=== PATIENT | male | born 1980 | race Caucasian/White ===

== ENCOUNTER → 2017-12-18 08:58 | Outpatient (CLI) | payer OTHER, SELFPAY | PROVIDERS: Family Provider Family Medicine; PCP Family Medicine; Visit Provider Family Medicine | DX: R13.10 Dysphagia, unspecified (principal) | CPT/HCPCS: 74220 ==

== ENCOUNTER 2024-12-21 06:52 | Day surgery (SDC) | payer OTHER, SELFPAY ==
[2024-12-21] VITALS (7 sets, daily range): BP systolic 123–134; BP diastolic 88–97; PULSE 68–78; RESP 16; TEMP 36.4–36.6; O2SAT 95–99; BMI 28.8
--- OUTSIDE RECORDS SUMMARY | 2024-12-21 06:56 | XMS RPT_ITS | CCD ---
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 Mendoza Primary Care Provider Dr. Reji Galaviz MD Referring Provider Friend Dr. Marshall CASTORENA Attending Provider Reji Galaviz Primary Care Unavailable FriendMarshall Attending Unavailable Reji Galaviz Referring Unavailable Nate Lux Referring Unavailable Nate Lux Primary Care Unavailable FriendMarshall Attending Unavailable Problems Problem Classification Problem Date Documented Da te Episodic/Chronic Other gastrointestinal disorders (1 source) Dysphagia, unspecified; Translations: [Dysphagia, unspecified] Onset: 12-11-2024 Episodic Results Test Name Value Interpretation Reference Range Facility Gastroenterology Visit Repor ton 12-10-2024 Gastroenterology Visit Report [facility] [address] [place] [address] OFFICE VISIT Date of Service: 12/10/24 MR#: [id number] Acct: [id number] Name: EDEN SHARP Rep #: [id number] : 1980 Provider: Marshall Krause DO Age/Sex: 44/M Location[place] [facility] Status: Signed Intake Intake Visit Reasons: Dysphagia Allergies No Known Allergies Allergy (Verified 12/10/24 15:53) Medications ???Medication ???Instructions ???Recorded ???Confirmed ???Type NK 12/10/24 12/10/24 History Nurse's Note: Pt was scheduled for EGD on 12.21.24 at the end of their appt today. Reviewed prep instructions and which medications to hold prior to procedure with pt in office. A paper copy of EGD prep instructions were given to pt. Pt denies any questions or concerns at this time. PFSH Surgical History (Updated 12/10/24 @ 15:52 by Tesha García) History of hernia repair History of tonsillectomy Family History (Updated 12/10/24 @ 15:52 by Tesha García) Father Alcoholism Grandfather Alcoholism Social History (Updated 12/10/24 @ 15:34 by Tesha García) Smoking Status: Never smoker alcohol intake: current alcohol intake frequency: holidays/special occasions only substance use type: does not use HPI HPI Details: EDEN SHARP, is a 44 M who presents to the office today for initial consult. *[facility] established 8 pt reprots that for the past several years he has had trouble with meat and dry food; states he can feel it get stuck at the top of his stomach. States he is sometimes able to get it to go down with a drink, other times states he has to vomit in order to dislodge it. Pt reports he has never had an EGD before. ROS Const Constitutional: No fatigue, fever(s) or weight change ENT ENT: Positive for difficulty swallowing Gastro GI: Positive for difficulty swallowing; No abdominal pain, belching, bloating, change in bowel habits, change in stool character, coffee ground emesis, constipation, cramping, diarrhea, heartburn, feeling full early, excessive flatus, incontinent of stools, Vomiting blood/hematemesis, Blood in stool, loose stools, Black,tarry stools, nausea/dyspepsia, pain with swallowing, vomiting or other Musc Musculoskeletal: No joint pain Skin Skin: No yellowing of the eye or itchy eyes Psych Psychiatric: No anxiety and No depression Endo Endocrine: No fatigue or weight change Aller/Imm Allergy/Immunologic: No itchy eyes Rafal/Lymp Hematologic/Lymphatic: No easy bleeding or easy bruising Exam Const General: cooperative, healthy appearing and comfortable Nutritional Appearance: well nourished Orientation: oriented x3 Eyes Sclera: sclerae normal Resp Effort Inspection: normal respiratory effort Auscultation: Bilateral: Clear to Auscultation Cardio Rate: regular rate Rhythm: regular rhythm GI Inspection: normal to inspection Auscultation: normal bowel sounds Percussion: normal to percussion Palpation: no hepatosplenomegaly Assessment and Plan Assessment and Plan (1) Dysphagia: Plan: The patient reports experiencing a sensation of food sticking or getting caught in the chest when swallowing solid foods.???This has been present for months to years.???The patient may report feeling the need to repeatedly swallow, or take multiple sips of liquids to help the food pass, or that the food seems to get stuck and then resolve spontaneously.???It has been occurring for several years. He cannot associate it with any particular type of food except for meats. His lipids been stable. He does not have a history of esophageal reflux disease. On occasion he may get heartburn with red wine .Differential Diagnosis:???A broad differential diagnosis should be considered, including: * Mechanical Obstruction:???Esophage al strictures (e.g., peptic stricture, eosinophilic esophagitis), webs, rings, or tumors.??? * Motility Disorders:???Achalasia, esophageal spasm, or other motility disorders.??? * Extrinsic Compression:???Mediasti nal masses, enlarged lymph nodes, or vascular abnormalities.??? * Other:???GERD, medications, or neurological conditions affecting swallowing.??? * Further Evaluation: * Endoscopy (EGD):???To visualize the esophagus, assess for strictures, tumors, or other abnormalities. * Barium Swallow:???He had a barium swallow back in 2018 which did show the narrowing at the distal esophagus. * Esophageal Manometry:???To assess esophageal muscle contractions and pressures, useful for diagnosing motility disorders. * Other Imaging:???CT scan or MRI may be needed to evaluate for extrinsic compression or other mediastinal abnormalities.??? Coding Level of Care Code Off vis,new,level 4 Diagnoses Dysphagia R13.10 12/10/24 1642 Date Marshall F (more content not included)... Normal [facility] Other 01-21-2006 CONVERTED ELECTRONIC SIGNATURE PEGGY KANG M.D., PATHOLOGIST (Electronic signature on file) Final Signed Out: 01/21/2006 16:07 [facility] CONVERTED FINAL DIAGNOSIS LEFT INGUINAL REGION, EXCISION - BENIGN FIBROADIPOSE TISSUE CONSISTENT WITH HERNIA SAC. [facility] CONVERTED ORDERING PROVIDER Ordering Provider: LINUS MONTILLA [facility] Encounters Encounter Date Encounter Type Care Provider Facility Start: 12-21-2024 ambulatory Nate Lux Facility:[facility] Start: 12-10-2024 End: 12-10-2024 Patient encounter procedure Marshall Krause DO -[facility] Work Phone: Start: 12-10-2024 End: 12-10-[address] Reji Galaviz MD Work Phone: -[facility] Start: 01-18-2006 End: 01-18-2006 Patient encounter procedure Linus Montilla Work Phone: [facility] Start: 01-18-2006 Results Only Linus Montilla Work Phone: [facility] Procedures Date Procedure Procedure Detail Performing Clinician Start: 01-18-2006 CONVERTED SURGICAL PATHOLOGY Linus Montilla Work Phone: Payers Date Payer Category Payer Self-pay 2012 Unknown [id number] Unknown [id number] Unknown [id number] Social History Date Type Detail Facility Tobacco smoking stat [facility] Unknown if ever smoked [facility] Sex Assigned At Not on file [facility] Start: 12-10-2024 [facility] Start: 1980 Sex Assigned At Male [facility] Progress note 12-10-2024 Note Date & Type Note Facility 12-10-2024 Progress note Note Date/Time December 10, 2024 4:42pm [facility] [address] [place] [address] OFFICE VISIT Date of Service: 12/10/24 MR#: [id number] Acct: [id number] Name: EDEN SHARP Rep #: [id number] : 1980 Provider: Marshall Krause DO Age/Sex: 44/M Location: [facility] Status: Signed Intake Intake Visit Reasons: Dysphagia Allergies No Known Allergies Allergy (Verified 12/10/24 15:53) Medications ?Medication ?Instructions ?Recorded ?Confirmed ?Type NK 12/10/24 12/10/24 History Nurse's Note: Pt was scheduled for EGD on 12.21.24 at the end of their appt today. Reviewed prep instructions and which medications to hold prior to procedure with pt in office. A paper copy of EGD prep instructions were given to pt. Pt denies any questions or concerns at this time. [facility] Surgical History (Updated 12/10/24 @ 15:52 by Tesha García) History of hernia repair History of tonsillectomy Family History (Updated 12/10/24 @ 15:52 by Tesha García) Father Alcoholism Grandfather Alcoholism Social History (Updated 12/10/24 @ 15:34 by Tesha García) Smoking Status: Never smoker alcohol intake: current alcohol intake frequency: holidays/special occasions only substance use type: does not use HPI HPI Details: EDEN SHARP, is a 44 M who presents to the office today for initial consult. *[facility] established 12.10.24 pt reprots that for the past several years he has had trouble with meat and dry food; states he can feel it get stuck at the top of his stomach. States he is sometimes able to get it to go down with a drink, other times states he has to vomit in order to dislodge it. Pt reports he has never had an EGD before. ROS Const Constitutional: No fatigue, fever(s) or weight change ENT ENT: Positive for difficulty swallowing Gastro GI: Positive for difficulty swallowing; No abdominal pain, belching, bloating, change in bowel habits, change in stool character, coffee ground emesis, constipation, cramping, diarrhea, heartburn, feeling full early, excessive flatus, incontinent of stools, Vomiting blood/hematemesis, Blood in stool, loose stools, Black,tarry stools, nausea/dyspepsia, pain with swallowing, vomiting or other Musc Musculoskeletal: No joint pain Skin Skin: No yellowing of the eye or itchy eyes Psych Psychiatric: No anxiety and No depression Endo Endocrine: No fatigue or weight change Aller/Imm Allergy/Immunologic: No itchy eyes Rafal/Lymp Hematologic/Lymphatic: No easy bleeding or easy bruising Exam Const General: cooperative, healthy appearing and comfortable Nutritional Appearance: well nourished Orientation: oriented x3 Eyes Sclera: sclerae normal Resp Effort & Inspection: normal respiratory effort Auscultation: Bilateral: Clear to Auscultation Cardio Rate: regular rate Rhythm: regular rhythm GI Inspection: normal to inspection Auscultation: normal bowel sounds Percussion: normal to percussion Palpation: no hepatosplenomegaly Assessment and Plan Assessment and Plan (1) Dysphagia: Plan: The patient reports experiencing a sensation of food sticking or getting caught in the chest when swallowing solid foods.?This has been present for months to years.?The patient may report feeling the need to repeatedly swallow, or take multiple sips of liquids to help the food pass, or that the food seems to get stuck and then resolve spontaneously.?It has been occurring for several years. He cannot associate it with any particular type of food except for meats. His lipids been stable. He does not have a history of esophageal reflux disease. On occasion he may get heartburn with red wine .Differential Diagnosis:?A broad differential diagnosis should be considered, including: * Mechanical Obstruction:?Esophageal strictures (e.g., peptic stricture, eosinophilic esophagitis), webs, rings, or tumors.? * Motility Disorders:?Achalasia, esophageal spasm, or other motility disorders.? * Extrinsic Compression:?Mediastinal masses, enlarged lymph nodes, or vascular abnormalities.? * Other:?GERD, medications, or neurological conditions affecting swallowing.? * Further Evaluation: * Endoscopy (EGD):?To visualize the esophagus, assess for strictures, tumors, or other abnormalities. * Barium Swallow:?He had a barium swallow back in 2018 which did show the narrowing at the distal esophagus. * Esophageal Manometry:?To assess esophageal muscle contractions and pressures, useful for diagnosing motility disorders. * Other Imaging:?CT scan or MRI may be needed to evaluate for extrinsic compression or other mediastinal abnormalities.? Coding Level of Care Code Off vis,new,level 4 Diagnoses Dysphagia R13.10 12/10/24 2922 <Electronically signed by Marshall adame DO> Date _ Marshall Friend DO Adele Signature: Date (if applicable) CC: ~ [facility] Work Phone: Progress note 12-10-2024 Note Date & Type Note Facility 12-10-2024 Progress note [facility] Evaluation note Note Date & Type Note Facility Evaluation note No assessment information availa ble [facility] Work Phone: Reason for referral (narrative) Note Date & Type Note Facility Reason for referral (narrative) No reason for referral information available [facility] Work Phone: Chief Complaint and Reason for Visit Chief Complaint Admit Date Dysphagia December 10, 2024 3: 30pm Summary Purpose Family History No Family History Records Found Advance Directives No Advanced Directives Records Found Additional Source Comments Source Comments (unrecognize d section and content) In the event this informatio n is protected by the Federal Confidentiality of Alcohol and Drug Abuse Patient Records regulations: The Federal rules restrict any use of the information to criminally investigate or prosecute any alcohol or drug abuse patient.[facility] Care Teams (unrecognized sec tion and content) Team Status: Active Member Role/Relationship Status Dates Dr. Reji Galaviz MD Family Provider Active Dr. Reji Galaviz MD Primary Care Provider Acti ve Team Status: Inactive Member Role/Relationship Status Dates Dr. Reji Galaviz MD Primary Care Provider Acti ve Start: December 10, 2024 End: December 10, 2024 Dr. Reji Galaviz MD Referring Provider Active Start: December 10, 2024 End: December 10, 2024 Dr. Marshall Krause , DO Attending Provider Active Start: December 10, 2024 End: December 10, 2024 Goals (unrecognized section and content) Goals may be documented in a n alternate section (unrecognized sect ion and content) No Status Records Found INFORMATION SOURCE (unrecogn ized section and content) DATE CREATED AUTHOR 12/19/2024 [facility] FOR RECORDS PERTAINING TO PATIENTS WHO ARE OR HAVE BEEN ENROLLED IN A CHEMICAL DEPENDENCY/SUBSTANCEABUSE PROGRAM, SOME INFORMATION MAY BE OMITTED. This clinical summary was aggregated from multiple sources. Caution should be exercised in using it in the provision of clinical care. This summary normalizes information from multiple sources, and as a consequence, information in this document may materially change the coding, format and clinical context of patient data. In addition, data may be omitted in some cases. CLINICAL DECISIONS SHOULD BE BASED ON THE PRIMARY CLINICAL RECORDS. [employer] [facility]. provides no warranty or guarantee of the accuracy or completeness of information in this document.
--- NOTE | 2024-12-21 07:22 | HP.PCM_ITS ---
HPI - General General Date of Admission: 12/21/24 Date of Service: 12/21/24 Chief Complaint: dysphagia HPI Narrative *[facility] established 12.10.24 pt reports that for the past several years he has had trouble with meat and dry food; states he can feel it get stuck at the top of his stomach. States he is sometimes able to get it to go down with a drink, other times states he has to vomit in order to dislodge it. Pt reports he has never had an EGD before. [facility] Medical History Alcohol use Difficulty swallowing Non-smoker Home Medications ?Medication ?Instructions ?Recorded ?Last Taken ?Type NK 12/10/24 Unknown History Allergy/AdvReac Type Severity Reaction Status Date / Time No Known Allergies Allergy Verified 12/21/24 07:17 Family History Father Alcoholism Grandfather Alcoholism Surgical History History of tonsillectomy and adenoidectomy History of hernia repair Social History Smoking Status: Never smoker alcohol intake: current alcohol intake frequency: holidays/special occasions only substance use type: does not use ROS Constitutional Constitutional: Denies fatigue, fever(s), poor appetite, weight gain or weight loss Gastrointestinal Gastrointestinal: Denies belching, bloating, change in bowel habits, change in stool character, chewing difficulty, coffee ground emesis, constipation, cramping, diarrhea, dyspepsia, dysphagia, early satiety, excessive flatus, fecal incontinence, heartburn, hematemesis, hematochezia, hemorrhoids, loose stools, melena, nausea, odynophagia, rectal bleeding, tenesmus, vomiting or weight ch anges Vital Signs Vital Signs Vital Signs: 12/21/24 07:17 12/21/24 07:17 Temperature 97.8 F Temperature Source Temporal Pulse Rate 78 Respiratory Rate 16 Respiratory Pattern Normal Blood Pressure 128/95 H Blood Pressure Mean 106 Blood Pressure Source Monitor Blood Pressure Position Sitting Blood Pressure Location Right Arm Pulse Ox 99 Oxygen Delivery Method Room Air Weight Weight: 189 lb 9.561 oz Body Mass Index (BMI) 28.8 Physical Exam Const alert, oriented x3, no apparent distress and healthy appearing General Appearance: cooperative GI normal to inspection, nondistended, normoactive bowel sounds, soft to palpation, non-tender and non-distended Percussion: normal to percussion Rectal Exam: deferred Assessment & Plan Assessment/Plan (1) Dysphagia: PLAN: Assessment and Plan Assessment and Plan (1) Dysphagia: Plan: The patient reports experiencing a sensation of food sticking or getting caught in the chest when swallowing solid foods.?This has been present for months to years.?The patient may report feeling the need to repeatedly swallow, or take multiple sips of liquids to help the food pass, or that the food seems to get stuck and then resolve spontaneously.?It has been occurring for several years. He cannot associate it with any particular type of food except for meats. His lipids been stable. He does not have a history of esophageal reflux disease. On occasion he may get heartburn with red wine .Differential Diagnosis:?A broad differential diagnosis should be considered, including: * Mechanical Obstruction:?Esophageal strictures (e.g., peptic stricture, eosinophilic esophagitis), webs, rings, or tumors.? * Motility Disorders:?Achalasia, esophageal spasm, or other motility disorders.? * Extrinsic Compression:?Mediastinal masses, enlarged lymph nodes, or vascular abnormalities.? * Other:?GERD, medications, or neurological conditions affecting swallowing.? * Further Evaluation: * Endoscopy (EGD):?To visualize the esophagus, assess for strictures, tumors, or other abnormalities. * Barium Swallow:?He had a barium swallow back in 2018 which did show the narrowing at the distal esophagus. * Esophageal Manometry:?To assess esophageal muscle contractions and pressures, useful for diagnosing motility disorders. * Other Imaging:?CT scan or MRI may be needed to evaluate for extrinsic compression or other mediastinal abnormalities.?
[2024-12-21] MEDS: Lactated Ringers 1,000 ML 15 ML IV (07:25)
--- NOTE | 2024-12-21 07:40 | PRE.ANES_ITS ---
ASA Classification* ASA Classification ASA Classification: 2 Assessment & Plan Anesthesia* Anesthesia Assessment Anesthesia Assessment: Discussed sedation and/or anesthesia options, risks, benefits, and alternatives with patient/parents/legal guardian/POA. Questions invited. The patient/parents/legal guardian/POA seems to understand and agrees to proceed with anesthesia plan. Reviewed the physical assessment, medical history, allergy history and patient home medications list prior to surgery/procedure/anesthetic and documented any changes. Performed airway and anesthesia risk assessments. Anesthesia Type Anesthesia Type: MAC History Source History Obtained from:: Patient and Chart Anesthesia Focused Assessment* Temperature: 97.8 F Pulse Rate: 78 Blood Pressure: 128/95 Respiratory Rate: 16 Pulse Ox: 99 Oxygen Delivery Method: Room Air Airway Assessment Mouth opens: >3 cm Mallampati Score: I Teeth Condition: Intact Neck Range of motion (ROM): Full ROM Labs Anesthesia Preop lab: CBC CHEMISTRY COAG Pre-Assessment Diagnosis/Proposed Procedure Planned Operative Procedure(s): EGD Anesthesia History Anesthesia History - technical program manager: Anesthesia History - technical program manager Hx Hospitalization No 12/18/24 15:23 Any Problems With Anesthesia No 12/18/24 15:23 Cholinesterase deficiency No 12/18/24 15:23 You/Your Family Experience No 12/18/24 15:23 fever (hyperthermia) with Relationship Recent Exposure to Contagious No 12/21/24 07:17 Disease Does patient have nerve No 12/18/24 15:23 stimulator Patient instructed to have device shut off --Does patient have Pacemaker No 12/21/24 07:17 or ICD? When Was Last Pacemaker Check QUESTION #4 FULL TEXT: You/Your Family Experience fever (hyperthermia) with Anesthesia Last Oral Intake Last Oral intake: Last Oral Intake NPO since 21:00 12/21/24 07:17 Meds taken in AM with sips of No 12/21/24 07:17 water? Meds patient instructed to take am of surgery PONV PONV - technical program manager: PONV - technical program manager Female No 12/18/24 15:23 HX of Motion Sickness No 12/18/24 15:23 HX of N/V After Surgery No 12/18/24 15:23 Non-Smoker Yes 12/18/24 15:23 Duration of Surgery greater No 12/18/24 15:23 than 60 minutes Number of Risk Factors 1 12/18/24 15:23 PONV Score Low Risk 12/18/24 15:23 Height & Weight Height & Weight: Anesthesia: Height & Weight Height 5 ft 8 in 12/21/24 07:17 Weight: 86 kg 12/21/24 07:17 Body Mass Index (BMI) 28.8 12/21/24 07:17 Respiratory Assessment Respiratory Assessment - technical program manager: Respiratory Tract Infection Hx - technical program manager Hx Respiratory Tract Infection No 12/18/24 15:23 STOP Sleep Apnea STOP Sleep Apnea - technical program manager: STOP Sleep Apnea - technical program manager Hx Hypertension No 12/18/24 15:23 Hx Sleep Apnea No 12/18/24 15:23 CPAP BIPAP Do you snore loudly (louder No 12/18/24 15:23 than talking or can be heard Do you often feel tired/ No 12/18/24 15:23 fatigued/ sleepy during daytime? Has anyone observed you stop No 12/18/24 15:23 breathing during sleep? STOP Results Negative 12/18/24 15:23 QUESTION #5 FULL TEXT : Do you snore loudly (louder than talking or can be heard through closed doors)? Tobacco Use History Tobacco Use History - technical program manager: Tobacco Use History - technical program manager Tobacco Use Smoking Status Never smoker 12/18/24 15:23 Hx Tobacco Use No 12/18/24 15:23 Years Smoking Packs Smoked per Day Smoking Cessation Date was within the last 15 years Hx Smoking Cessation Date Hx Smoking Cessation Counseling Hematologic Medial History Hematologic Hx - technical program manager: Hematologic Medical Hx - branch office manager Hx of Blood Transfusion No 12/18/24 15:23 Hx of Transfusion in last 3 No 12/18/24 15:23 Months Date of Last Transfusion (if within last 3 months) Ever experience any problems No 12/18/24 15:23 with transfusion(s)? Specify any problems Hx of Preganancy in last 3 N/A 12/18/24 15:23 Months Nurse Filling Out Transfusion DSCHRIBER 12/18/24 15:23 & Questions: Date: 12/18/24 12/18/24 15:23 Time: 12/18/24 15:23 Patient unable to answer at this time (ie. confused, unrespo /Reproduction History /Reproductive History - technical program manager: /Reproductive Hx- technical program manager Hx Now No 12/18/24 15:23 Gestational Age (in weeks): EDC: Hx Hx Para Hx Section SAB No 12/18/24 15:23 Active Medications Active Medications: Current Medications Generic Name Dose Route Start Last Admin Trade Name Freq PRN Reason Stop Dose Admin Lactated Ringer's 1,000 mls @ 15 mls/hr 12/21/24 07:15 12/21/24 07:25 IV 15 mls/hr .Q48H GIACOMO Administration PFSH Medical History Alcohol use Difficulty swallowing Non-smoker Home Medications ?Medication ?Instructions ?Recorded ?Last Taken ?Type NK 12/10/24 Unknown History Allergy/AdvReac Type Severity Reaction Status Date / Time No Known Allergies Allergy Verified 12/21/24 07:17 Family History Father Alcoholism Grandfather Alcoholism Surgical History History of tonsillectomy and adenoidectomy History of hernia repair Social History Smoking Status: Never smoker alcohol intake: current alcohol intake frequency: holidays/special occasions on ly substance use type: does not use Review of Systems (Anesthesia) ROS Narrative System reviewed and no additional complaints, except as documented. Physical Exam Const alert and oriented x3 Orientation / Consciousness: awake Resp normal respiratory effort and normal air movement Cardio regular rate and regular rhythm Extremity full ROM Neuro oriented x3 and moves all extremities
--- NOTE | 2024-12-21 08:00 | EGD_PTH ---
PATIENT: EDEN SHARP LOC: EN U#:[id number] AGE/SX: 44/M ROOM: RE12/21/[address]: Dr. Marshall Krause DO : 1980 BED: DIS: 12/21/2024 SPEC #: [id number] RECD: 12/21/24 08:45 STATUS: DEAN REQ #: [id number] FRANK: 12/21/24 08:[address]: Marshall Krause DEPT: SURGICAL PATHOLOGY RECD BY: Dominic Wilhelm ENTERED: 12/21/24 10:50 SP TYPE: EGD BIOPSY VALERY DR: Dr. Nate Lux MD Tissues: A - Esophagus, NOS Procedures: Surgery Specimen Level IV HEADER OPERATION: EGD, biopsy PRE-OP DIAGNOSIS: Dysphagia TISSUE SUBMITTED: A- Random esophagus biopsy MICROSCOPIC DIAGNOSIS A. Esophagus, random biopsy: Squamous mucosa with reactive changes and >50 eosinophils per high power field. Columnar mucosa with goblet cell metaplasia - see note. Negative for dysplasia. Note: The diagnosis depends on the location of the biopsy and the extent of the mucosal irregularity. If the biopsy originates from the tubular esophagus and the mucosal irregularity extends at least 1 cm above the top of the gastric folds, this represents Hastings mucosa. If the biopsy originates from the gastric cardia and/or the mucosal irregularity is less than 1 cm in extent, this represents intestinal metaplasia. MICROSCOPIC DESCRIPTION Slides are reviewed. GROSS DESCRIPTION A. Received in fixative is one container labeled with the patient's name and designated Random esophagus biopsy. The specimen consists of multiple irregular fragments of light rapp soft tissue that in aggregate measure 1.2 x 0.7 x 0.1 cm. The specimen is totally submitted in one cassette. ME 12/21/2024 CPT:12989 ADDENDUM ADDENDUM ADDENDUM ADDENDUM ADDENDUM ADDENDUM ADDENDUM ADDENDUM ADDENDUM ADDENDUM ADDENDUM ADDENDUM ADDENDUM ADDENDUM ADDENDUM ADDENDUM ADDENDUM ADDENDUM 03/16/2025 08:49 ADDENDUM 03/16/2025 08:49 ADDENDUM 03/16/2025 08:49 ADDENDUM 03/16/2025 08:49 ADDENDUM 03/16/2025 08:49 This addendum is added to incorporate an outside pathology consultation report. The case was examined at [facility] and the following diagnosis was rendered. Bestowed - TISSUE CYPHER - BLOCK A 1 RISK CLASS: HIGH RISK SCORE: 7.1 5- year probability of progression: 17% *NOTE* Dye interference was detected in the sample. However, an unaffected area containing sufficient Hastings's Esophagus tissue for testing was identified and analyzed. Clinical discretion advised. Please see complete above mentioned consultation report in EMR
--- NOTE | 2024-12-21 08:31 | OP.EGD_ITS ---
Patient Name: Nasim Galindo Procedure Date: 12/21/2024 8:10 AM Date of : 1980 Age: 44 Procedure: Upper GI endoscopy Indications: Dysphagia Providers: Marshall Krause DO Referring MD: Nate Lux Medicines: Monitored Anesthesia Care Patient Profile: This is a 44 year old male. Refer to note in patient chart for documentation of history and physical. Patient has symptoms of dysphagia with solids. Complications: No immediate complications. Procedure: Pre-Anesthesia Assessment: - Prior to the procedure, a History and Physical was performed, and patient medications and allergies were reviewed. The patient is competent. The risks and benefits of the procedure and the sedation options and risks were discussed with the patient. All questions were answered and informed consent was obtained. Patient identification and proposed procedure were verified by the physician in the pre-procedure area. Mental Status Examination: alert and oriented. Airway Examination: normal oropharyngeal airway and neck mobility. Respiratory Examination: clear to auscultation. CV Examination: normal. Prophylactic Antibiotics: The patient does not require prophylactic antibiotics. Prior Anticoagulants: The patient has taken no anticoagulant or antiplatelet agents except for NSAID medication. ASA Grade Assessment: II - A patient with mild systemic disease. After reviewing the risks and benefits, the patient was deemed in satisfactory condition to undergo the procedure. The anesthesia plan was to use monitored anesthesia care (MAC). Immediately prior to administration of medications, the patient was re-assessed for adequacy to receive sedatives. The heart rate, respiratory rate, oxygen saturations, blood pressure, adequacy of pulmonary ventilation, and response to care were monitored throughout the procedure. The physical status of the patient was re-assessed after the procedure. After obtaining informed consent, the endoscope was passed under direct vision. Throughout the procedure, the patient's blood pressure, pulse, and oxygen saturations were monitored continuously. The gastroscope was introduced through the mouth, and advanced to the second part of duodenum. The upper GI endoscopy was accomplished without difficulty. The patient tolerated the procedure well. Scope In: 8:19:43 AM Scope Out: 8:25:55 AM Total Procedure Duration Time 0 hours 6 minutes 12 seconds Findings: Mucosal changes including ringed esophagus, feline appearance, longitudinal furrows, small-caliber esophagus and circumferential folds were found in the middle third of the esophagus and in the lower third of the esophagus. Esophageal findings were graded using the Eosinophilic Esophagitis Endoscopic Reference Score (EoE-EREFS) as: Edema Grade 1 Present (decreased clarity or absence of vascular markings), Rings Grade 2 Moderate (distinct rings that do not occlude passage of diagnostic 8-10 mm endoscope), Exudates Grade 1 Mild (scattered white lesions involving less than 10 percent of the esophageal surface area), Furrows Grade 1 Mild (vertical lines without visible depth) and Stricture present. Biopsies were obtained from the proximal and distal esophagus with cold forceps for histology of suspected eosinophilic esophagitis. Verification of patient identification for the specimen was done. Estimated blood loss was minimal. The entire examined stomach was normal. The examined duodenum was normal. Impression: - Esophageal mucosal changes consistent with eosinophilic esophagitis. - Normal stomach. - Normal examined duodenum. - Biopsies were taken with a cold forceps for evaluation of eosinophilic esophagitis. Recommendation: - Discharge patient to home. - Resume previous diet. - Continue present medications. - Await pathology results. -Omeprazole 40 mg p.o. twice daily x 2 months, then 40 mg p.o. daily x 1 month Procedure Code(s): --- Professional --- 60001, Esophagogastroduodenoscopy, flexible, transoral; with biopsy, single or multiple CPT copyright 2021 [employer]. All rights reserved. The codes documented in this report are preliminary and upon project management consultant review may be revised to meet current compliance requirements. Marshall Krause DO 12/21/2024 8:31:00 AM This report has been signed electronically. Number of Addenda: 0 Note Initiated On: 12/21/2024 8:10 AM
--- NOTE | 2024-12-21 08:31 | OP.PROVAT_ITS ---
12/21/2024 Nate Lux [address] [place] [address] Re : Upper GI endoscopy procedure for Nasim Galindo Dear Dr. Lux This procedure was performed on Saturday, December 21, 2024. My impressions and recommendations are as follows: Impressions : - Esophageal mucosal changes consistent with eosinophilic esophagitis. - Normal stomach. - Normal examined duodenum. - Biopsies were taken with a cold forceps for evaluation of eosinophilic esophagitis. Recommendations : - Discharge patient to home. - Resume previous diet. - Continue present medications. - Await pathology results. -Omeprazole 40 mg p.o. twice daily x 2 months, then 40 mg p.o. daily x 1 month My findings are described in the full procedure note, which is enclosed. If I can be of further assistance, please feel free to contact me at . Sincerely, Marshall Krause, 12/21/2024 8:31:00 AM This report has been signed electronically.
--- NOTE | 2024-12-21 08:37 | PCM.POST.ANE ---
Anesthesia: Postop Eval I Current Vital Signs Temperature: 97.6 F Pulse Rate: 68 Blood Pressure: 123/88 Respiratory Rate: 16 Pulse Ox: 95 Oxygen Delivery Method: Room Air Assessment Airway patent: Yes Spontaneous unlabored respirations: Yes Mental status: Asleep nausea: No Vomiting: No Anesthesia Complication: No Fluid Hydration Crystalloid volume administer (ml): 400 Total IV fluid infused: 400 Progress Note Anesthesia document: Postop Eval 1 completed: Yes
[2024-12-21] MEDS: Pantoprazole Sodium 40 MG in 0.9% Normal Saline (100mL MB+) 100 ML 300 MG IV (08:46)
== END 2024-12-21 09:37 | disposition home or self-care (01) ==
LOC: EN 06:54 → AC 06:56
PROVIDERS: PCP Family Medicine; Referring Provider Family Medicine; Visit Provider Internal Medicine Gastroenterology
PROC: 0DJ08ZZ Inspection of Upper Intestinal Tract, Via Natural or Artificial Opening Endoscopic (ICD-10-PCS; CPT 43235; principal; 2024-12-21 07:55)
DX: R13.10 Dysphagia, unspecified (principal)
CPT/HCPCS: 43239; 88305; J2405

== ENCOUNTER 2025-04-19 22:43 | Emergency (ER) | payer OTHER, SELFPAY ==
[2025-04-19 22:43] VITALS: BP 136/96; PULSE 81; RESP 15; TEMP 36.3; O2SAT 100; BMI 30.7
--- NOTE | 2025-04-19 23:29 | EDS_ITS ---
HPI History of Present Illness Chief Complaint: Laceration Informant: patient Narrative Narrative: Patient is a 45-year-old male with no significant PMHx presenting to the ED with a laceration to the forehead sustained while playing basketball. - Reports sustaining a laceration to the forehead while playing basketball today. - Bleeding has stopped. - Denies any visual disturbances or headaches. No LOC, headache, N/V, neuro sx. - Unsure if the injury requires medical attention but concerned about potential scarring. - Denies any other health problems. - Tetanus vaccination reportedly administered within the last 5 years. Tetanus Immunization: <5 [address] [facility] Medical History Alcohol use Difficulty swallowing Non-smoker Home Medications ?Medication ?Instructions ?Recorded ?Last Taken ?Type omeprazole 40 mg capsule,delayed 40 mg PO QDAY #90 cap s 02/11/25 Unknown Rx release Allergy/AdvReac Type Severity Reaction Status Date / Time No Known Allergies Allergy Verified 04/19/25 22:44 Family History Father Alcoholism Grandfather Alcoholism Surgical History History of tonsillectomy and adenoidectomy History of hernia repair Social History Smoking Status: Never smoker alcohol intake: current alcohol intake frequency: holidays/special occasions only substance use type: does not use ROS ROS ED Constitutional Constitutional ED: Denies chills or fever(s) Eyes Eyes: Denies change in vision or diplopia ENT ENT ED: Reports facial pain; Denies ear pain, epistaxis or rhinorrhea Cardiovascular Cardiovascular: Denies chest pain or palpitations Respiratory/Chest Respiratory/Chest: Denies cough or dyspnea Gastrointestinal Gastrointestinal: Denies abdominal pain, diarrhea, melena, nausea or vomiting Genitourinary Genitourinary ED: Denies dysuria or hematuria Musculoskeletal Musculoskeletal: Denies back pain, extremity pain or neck pain Integumentary Reports laceration; Denies abscess, Abrasions or rash Neurologic Neurologic: Denies confusion, headache(s), paresthesias or weakness EXAM Physical Exam Const Vital Signs: 04/19/25 22:43 Temperature 97.4 F L Temperature Source Temporal Pulse Rate 81 Respiratory Rate 15 Blood Pressure 136/96 H Blood Pressure Mean 109 Pulse Ox 100 Oxygen Delivery Method Room Air Positive well nourished and well developed General Appearance ED: well developed and NAD HEENT HEENT Narrative: Contusion with 3 cm full-thickness laceration just above and partially within the right eyebrow. No hematoma no crepitance or depression no periorbital ecchymosis. No Herrera sign, no raccoon eyes, no CSF otorhinorrhea, no hemotympanum. Eyes PERRL and EOMs intact bilaterally Visual Acuity: other Other Details: no entrapment or pain with extraocular movements Neck full ROM and supple General: Negative for tenderness Extremity normal to inspection and full ROM Neuro oriented x3, CN's II-XII intact bilaterally, moves all extremities, no focal motor deficits and no sensory deficits noted Duane Coma Scale: document GCS findings Spontaneous Obeys Commands Oriented 15 Sensorium / Orientation: awake and alert Skin Skin Narrative: 3 cm full-thickness mostly linear laceration right eyebrow/face. Lesions: no lesions Rashes: no rashes PROC Procedures Lacerations face R eyebrow: Length: 3 cm Depth: Sub Q Shape: Linear Prep: Sterile Conditions and Chlorhexadine Laceration repair: Irrigated, Lidocaine with epi (1%, 3cc), Local and Skin sutures Irrigated (ml): 30 Number of Sutures/Eola: 6 Suture Information: Ethilon, Simple and 6-0 MDM MDM MDM Narrative Medical decision making narrative: Assessment: The patient is a 45-year-old male presenting for a forehead lacerat ion sustained while playing basketball. He has no reported medical problems. Examination shows a linear forehead laceration without evidence of facial fracture, ocular injury, or intracranial concern. Uncomplicated facial laceration is the working diagnosis. Plan: - Infiltrated local anesthetic; completed layered forehead laceration repair (see procedure note). - Tetanus status verified current; no booster required. - Provided wound care instructions, including cleansing guidance and return precautions. - Advised suture removal in approximately 5 days with PCP, urgent care, or ED. - Discharged in stable condition. Portions of this note were generated using voice recognition software ([employer]). I have reviewed the contents and every effort has been made to ensure accuracy; however, inadvertent errors in grammar, spelling, punctuation, or word choice may occur, that were not noted before signing the document and should not alter the intended clinical meaning. Discharge Plan Triage Chief Complaint: Laceration ED Provider: Bert Campbell Dx/Rx/DC Orders Clinical Impression: Laceration of face Instructions: ED FACIAL LACERATION Suture Tape Prescriptions: No Action omeprazole 40 mg capsule,delayed release(DR/EC) 40 mg PO QDAY Qty: 90 3RF Rx Instructions: take once daily 30 minutes before first meal Primary Care Provider: Nate Lux Referrals: Nate Lux MD [Primary Care Provider, [facility]] - 5 Days for suture removal Activity Restrictions/Additional Instructions: - Clean the wound as instructed, keeping the area clean and dry per the cleansing guidelines you received. - Have the sutures removed in about 5 days; you can schedule removal with your primary care provider, at an urgent care clinic, or in the ER. - Your tetanus immunization is up to date; no booster is needed at this time. Print Language: Gambian Disposition Disposition: Home, Self Care
[2025-04-19] MEDS: Lidocaine 1% /Epi 1:100 (20ml) 20 ML Vial INFILT (23:32)
--- OUTSIDE RECORDS SUMMARY | 2025-04-19 23:36 | XMS RPT_ITS | CCD ---
Author Organization [facility] Care Team Providers Care Street Engineer Name Role Phone Pcp, No Primary Care Provider Unavailabl e Guillaume OSBORN, Dr. Mendoza Primary Care Provider Guillaume OSBORN, Dr. Mendoza Referring Provider Dr. Marshall Krause DO Attending Provider Jose J OSBORN, Dr. Sullivan Primary Care Provider [phone] Jose J OSBORN, Dr. Sullivan Referring Provider Dr. Marshall Krause DO Other Provider Marshall Krause Attending Unavailable Reji Galaviz Referring Unavailable Reji Galaviz Primary Care Unavailable Marshall Krause Attending Unavailable Marshall Krause Consulting Unavailable Lux, Nate Referring Unavailable Lux, Nate Primary Care Unavailable FriendMarshall Attending Unavailable Lux, Nate Referring Unavailable Lux, Nate Primary Care Unavailable Marya Ryan Attending Unavailable Lux, Nate Referring Unavailable Jose J, Nate Primary Care Unavailable Guillaume OSBORN, Dr. Mendoza Primary Care Physicia n Dr. Marshall Krause DO Attending Physician Jose J OSBORN, Dr. Sullivan Primary Care Physician Dr. Marshall Krause DO Nurse Practitioner Connor RETAIL LINK ANALYST-CMarya Attending Physician Medications Current Medications Medication Drug Class(es) Dates Sig (Normalized) Sig (Original) omeprazole 40 mg delayed release oral capsule (3 sources) Proton Pump Inhibitor Start: 02-11-2025 Omeprazole 40 mg capsule,delayed release(DR/EC) Active 40 mg PO daily 90 3 February 11, 2025 12:00am take once daily 30 minutes before first meal Complies with drug therapy Start: 12-21-2024 End: 02-11-2025 take 1 capsule by mouth twice daily Omeprazole 40 mg capsule,delayed release(DR/EC) Discontinued 40 mg PO TWICE A DAY 60 3 December 21, 2024 12:00am February 11, 2025 3:38pm Problems Problem Classification Problem Date Documented Da te Episodic/Chronic Esophageal disorders (6 sources) Eosinophilic esophagitis; Translations: [Eosinophilic esophagitis] Onset: 02-12-2025 Chronic Other gastrointestinal disorders (6 sources) Dysphagia; Translations: [Dysphagia, unspecified] 12-16-2024 Episodic Other gastrointestinal disorders (2 sources) Dysphagia, unspecified; Translations: [Dysphagia, unspecified] Onset: 01-12-2025 Episodic Unclassified (1 source) K20.0 - Eosinophilic esophagitis Results Test Name Value Interpretation Reference Range Facility Gastroenterology Visit Repor ton 02-11-2025 Gastroenterology Visit Report [facility] [address] [place] [address] OFFICE VISIT Date of Service: 02/11/25 MR#: [id number] Acct: [id number] Name: EDEN GALINDO Rep #: [id number] : 1980 Provider: HAIDER bryan Age/Sex: 44/M Location: [facility] Status: Signed Intake Vital Signs 12/21/24 07:17 02/11/25 15:42 Height 5 ft 8 in 5 ft 8 in Weight: 195 lb BMI 29.6 BP 137/79 H Respiration 16 Pulse 56 L Temp 97.8 F Temp Source Temporal Pulse Oximetry (%) 97 Oxygen Delivery Method room air Intake Visit Reasons: F/u Testing--Dysphagia Chief Complaint: f/u after EGD Allergies No Known Allergies Allergy (Verified 02/11/25 15:41) Medications ???Medication ???Instructions ???Recorded ???Confirmed ???Type omeprazole 40 mg capsule,delayed 40 mg PO QDAY #90 caps 02/11/25 Rx release PFSH Medical History Alcohol use Difficulty swallowing Non-smoker Surgical History History of tonsillectomy and adenoidectomy History of hernia repair Family History Father Alcoholism Grandfather Alcoholism Social History Smoking Status: Never smoker alcohol intake: current alcohol intake frequency: holidays/special occasions only substance use type: does not use HPI HPI Chief Complaint: f/u after EGD Details: OV 12/10/2024 w/ Dr. Krause The patient reports experiencing a sensation of [...] for extrinsic compression or other mediastinal abnormalities.??? EGD 12/21/2024 >50 eosinophils per high power field, Hastings's (Dr. Krause recommends repeating EGD in 1 year) - Biopsy: Greater than 50 eosinophils identified in the esophagus. 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 - Esophageal mucosal changes consistent with eosinophilic esophagitis. - Normal stomach. - Normal examined duodenum. - Biopsies were taken with a cold forceps for evaluation of eosinophilic esophagitis. Recommendation: - Discharge patient to home. - Resume previous diet. - Continue present medications. - Await pathology results. -Omeprazole 40 mg p.o. twice daily x 2 months, then 40 mg p.o. daily x 1 month I wanna know what I'm allergic to - presents today frustrated that he called our office several times requesting results and no one would give them to him - reports he requested results/recommendations be email to him and he was told we do not have the capability to do this - he began the visit frustrated and voiced this frustration, because he wants to know his results and upset with our offices lack of communication The patient is a 44-year-old male presenting with concerns regarding potential food allergies contributing to his eosinophilic esophagitis. He reports no current symptoms but experienced trouble swallowing for approximately a decade. Despite these symptoms, he has not altered his diet but managed swallowing difficulty by drinking water. The patient underwent a biopsy which indicated greater than 50 eosinophils in the esophagus and the presence of columnar mucosa with goblet cell metaplasia, confirming eosinophilic esophagitis and the presence of Hastings's e (more content not included)... Normal [facility] EGD Reporton 12-21-2024 EGD Report [facility] Medical Records Department [address] [place] [address] EGD Report MR#: [id number] Acct: [id number] Name: EDEN GALINDO Rep #: [id number] : 1980 44 From: Marshall Krause DO PCP: Dr. Nate Lux MD Status:[facility] Patient Name: Eden Galindo Procedure Date: 12/21/2024 8:10 AM Date of : 1980 Age: 44 Procedure: Upper GI endoscopy Indications: Dysphagia Providers: Marshall Krause DO Referring MD: Nate Lux Medicines: Monitored Anesthesia Care Patient Profile: This is a 44 year old male. Refer to note in patient chart for documentation of history and physical. Patient has symptoms of dysphagia with solids. Complications: No immediate complications. Procedure: Pre-Anesthesia Assessment: - Prior to the procedure, a History and Physical was performed, and patient medications and allergies were reviewed. The patient is competent. The risks and benefits of the procedure and the sedation options and risks were discussed with the patient. All questions were answered and informed consent was obtained. Patient identification and proposed procedure were verified by the physician in the pre-procedure area. Mental Status Examination: alert and oriented. Airway Examination: normal oropharyngeal airway and neck mobility. Respiratory Examination: clear to auscultation. CV Examination: normal. Prophylactic Antibiotics: The patient does not require prophylactic antibiotics. Prior Anticoagulants: The patient has taken no anticoagulant or antiplatelet agents except for NSAID medication. ASA Grade Assessment: II - A patient with mild systemic disease. After reviewing the risks and benefits, the patient was deemed in satisfactory condition to undergo the procedure. The anesthesia plan was to use monitored anesthesia care (MAC). Immediately prior to administration of medications, the patient was re-assessed for adequacy to receive sedatives. The heart rate, respiratory rate, oxygen saturations, blood pressure, adequacy of pulmonary ventilation, and response to care were monitored throughout the procedure. The physical status of the patient was re-assessed after the procedure. After obtaining informed consent, the endoscope was passed under direct vision. Throughout the procedure, the patient's blood pressure, pulse, and oxygen saturations were monitored continuously. The gastroscope was introduced through the mouth, and advanced to the second part of duodenum. The upper GI endoscopy was accomplished without difficulty. The patient tolerated the procedure well. Scope In: 8:19:43 AM Scope Out: 8:25:55 AM Total Procedure Duration Time 0 hours 6 minutes 12 seconds Findings: Mucosal changes including ringed esophagus, feline appearance, longitudinal furrows, small-caliber esophagus and circumferential folds were found in the middle third of the esophagus and in the lower third of the esophagus. Esophageal findings were graded using the Eosinophilic Esophagitis Endoscopic Reference Score (EoE-EREFS) as: Edema Grade 1 Present (decreased clarity or absence of vascular markings), Rings Grade 2 Moderate (distinct rings that do not occlude passage of diagnostic 8-10 mm endoscope), Exudates Grade 1 Mild (scattered white lesions involving less than 10 percent of the esophageal surface area), Furrows Grade 1 Mild (vertical lines without visible depth) and Stricture present. Biopsies were obtained from the proximal and distal esophagus with cold forceps for histology of suspected eosinophilic esophagitis. Verification of patient identification for the specimen was done. Estimated blood loss was minimal. The entire examined stomach was normal. The examined duodenum was normal. Impression: - Esophageal mucosal changes consistent with eosinophilic esophagitis. - Normal stomach. - Normal examined duodenum. - Biopsies were taken with a cold forceps for evaluation of eosinophilic esophagitis. Recommendation: - Discharge patient to home. - Resume previous diet. - Continue present medications. - Await pathology results. -Omeprazole 40 mg p.o. twice daily x 2 months, then 40 mg p.o. daily x 1 month Procedure Code(s): --- Professional --- 06044, Esophagogastroduodenosc opy, flexible, transoral; with biopsy, single or multiple CPT copyright 2021 [employer]. All rights reserved. The codes documented in this report are preliminary and upon baggage agent supervisor review may be revised to meet current compliance requirements. Marshall Krause DO 12/21/2024 8:31:00 AM This report has been signed electronically. Number of Addenda: 0 Note Initiated On: 12/21/2024 8:10 AM 12/21/24 0831 Date Marshall Wallsignkatia Signature: Date (more content not included)... Normal [facility] MR/OP.PROVATon 12-21-2024 [facility]OP[facility] Medical Records Department [address] [place] [address] Provation Physician Letter MR#: [id number] Acct: [id number] Name: EDEN GALINDO Rep #: [id number] : 1980 44 From: Marshall Krause DO PCP: Dr. Nate Lux MD Status:[facility] 12/21/2024 Nate Lux [address] [place] [address] Re : Upper GI endoscopy procedure for Eden Galindo Dear Dr. Lux This procedure was performed on Saturday, December 21, 2024. My impressions and recommendations are as follows: Impressions : - Esophageal mucosal changes consistent with eosinophilic esophagitis. - Normal stomach. - Normal examined duodenum. - Biopsies were taken with a cold forceps for evaluation of eosinophilic esophagitis. Recommendations : - Discharge patient to home. - Resume previous diet. - Continue present medications. - Await pathology results. -Omeprazole 40 mg p.o. twice daily x 2 months, then 40 mg p.o. daily x 1 month My findings are described in the full procedure note, which is enclosed. If I can be of further assistance, please feel free to contact me at . Sincerely, Marshall Krause DO 12/21/2024 8:31:00 AM This report has been signed electronically. 12/21/24830 Date Marshall Krause DO Cosigner Signature: Date (if indicated) CC: Dr. Nate Lux MD; Marshall Krause DO Date Dictated: 12/21/24809 Date Transcribed: Manager Of Change: RF Signed Normal [facility] MR/POSTOP.[facility] 12-21-2024 MR/POSTOP.[facility] Medical Records Department [address] [place] [address] Anesthesia Postop Eval I 12/21/2437 MR#: [id number] Acct: [id number] Name: EDEN GALINDO Rep #: [id number] : 1980 44 From: Sylvester Rice PCP: Dr. Nate Lux MD Status:REG SDC Y Race: C Location: [place] [address] Anesthesia: Postop Eval I Current Vital Signs Temperature: 97.6 F Pulse Rate: 68 Blood Pressure: 123/88 Respiratory Rate: 16 Pulse Ox: 95 Oxygen Delivery Method: Room Air Assessment Airway patent: Yes Spontaneous unlabored respirations: Yes Mental status: Asleep nausea: No Vomiting: No Anesthesia Complication: No Fluid Hydration Crystalloid volume administer (ml): 400 Total IV fluid infused: 400 Progress Note Anesthesia document: Postop Eval 1 completed: Yes 12/21/24 0838 Date Sylvester Rice Seunsalvatore Signature: Date CC: Signed Normal [facility] Surgery Specimen Level Yoshi 12-21-2024 Surgery Specimen Level IV Patient Age/Sex Location Account Attending Physician EDEN GALINDO 44/M EN [id number] Marshall Krause DO Specimen: [id number] Received: 12/21/24 Status: DEAN Pimentel Num: [id number] Spec Type: EGD BIOPSY Subm Dr: Marshall Krause DO HEADER OPERATION: EGD, biopsy PRE-OP DIAGNOSIS: Dysphagia TISSUE SUBMITTED: A- Random esophagus biopsy MICROSCOPIC DIAGNOSIS A. Esophagus, random biopsy: Squamous mucosa with reactive changes and >50 eosinophils per high power field. Columnar mucosa with goblet cell metaplasia - see note. Negative for dysplasia. Note: The diagnosis depends on the location of the biopsy and the extent of the mucosal irregularity. If the biopsy originates from the tubular esophagus and the mucosal irregularity extends at least 1 cm above the top of the gastric folds, this represents Hastings mucosa. If the biopsy originates from the gastric cardia and/or the mucosal irregularity is less than 1 cm in extent, this represents intestinal metaplasia. MICROSCOPIC DESCRIPTION Slides are reviewed. GROSS DESCRIPTION A. Received in fixative is one container labeled with the patient's name and designated Random esophagus biopsy. The specimen consists of multiple irregular fragments of light rapp soft tissue that in aggregate measure 1.2 x 0.7 x 0.1 cm. The specimen is totally submitted in one cassette. [place] 12/21/2024 [facility]:[address] Patient Age/Sex Location Account Attending Physician EDEN GALINDO 44/M EN [id number] Marshall Krause DO Signed (signature on file) Dr. Mili Holloway MD 01/04/25 1605 Normal [facility] Comment on above: Performed By: #### P SUMARTHA #### [facility] Laboratory [address] [place], [place], [id number] Gastroenterology Visit Repor ton 12-10-2024 Gastroenterology Visit Report [facility] Gastroenterology [address] [place] [address] OFFICE VISIT Date of Service: 12/10/24 MR#: [id number] Acct: [id number] Name: EDEN GALINDO Sean Rep #: [id number] : 1980 Provider: Marshall Krause DO Age/Sex: 44/M Location: [facility] Status: Signed Intake Intake Visit Reasons: Dysphagia [...] any questions or concerns at this time. [facility] Surgical History (Updated 12/10/24 @ 15:52 by Tesha García) History of hernia repair History of tonsillectomy Family History (Updated 12/10/24 @ 15:52 by Tesha García) Father Alcoholism Grandfather Alcoholism Social History (Updated 12/10/24 @ 15:34 by Tesha García) Smoking Status: Never smoker alcohol intake: current alcohol intake frequency: holidays/special occasions only substance use type: does not use HPI HPI Details: EDEN GALINDO, is a 44 M who presents to [...] Marshall F (more content not included)... Normal [facility] Otheron 01-21-2006 CONVERTED ELECTRONIC SIGNATURE PEGGY KANG M.D., PATHOLOGIST (Electronic signature on file) Final Signed Out: 01/21/2006 16:07 [facility] CONVERTED FINAL DIAGNOSIS LEFT INGUINAL REGION, EXCISION - BENIGN FIBROADIPOSE TISSUE CONSISTENT WITH HERNIA SAC. [facility] CONVERTED ORDERING PROVIDER Ordering Provider: LINUS MONTILLA [facility] Vital Signs Date Time Vital Sign Value Performing Clinician Faci lity 02-11-2025 15:42-0400 Body height 172.[address] Reji Galaviz MD Work Phone: [facility] 02-11-2025 15:42-0400 Body mass index (BMI) [Ratio] 29.6 kg/m2 Dr. Reji Galaviz MD Work Phone: [facility] 02-11-2025 15:42-0400 Body temperature 97.8 [degF] Dr. Reji Galaviz MD Work Phone: [facility] 02-11-2025 15:42-0400 Body weight 88.[address] Reji Galaviz MD Work Phone: [facility] 02-11-2025 15:42-0400 Diastolic blood pressure 79 mm[Hg] Dr. Reji Galaviz MD Work Phone: [facility] 02-11-2025 15:42-0400 Heart rate 56 /min Dr. Reji Galaviz MD Work Phone: [facility] 02-11-2025 15:42-0400 Respiratory rate 16 /min Dr. Reji Galaviz MD Work Phone: [facility] 02-11-2025 15:42-0400 SaO2% (BldA) [Mass fraction] 97 % Dr. Reji Galaviz MD Work Phone: [facility] 02-11-2025 15:42-0400 Systolic blood pressure 137 mm[Hg] Dr. Reji Galaviz MD Work Phone: [facility] 12-21-2024 08:45-0400 Diastolic blood pressure 97 mm[Hg] Dr. Reji Galaviz MD Work Phone: [facility] 12-21-2024 08:45-0400 Heart rate 68 /min Dr. Reji Galaviz MD Work Phone: [phone] [address] 12-21-2024 08:45-0400 Respiratory rate 16 /min Dr. Reji Galaviz MD Work Phone: [phone])[phone] [address] 12-21-2024 08:45-0400 SaO2% (BldA) [Mass fraction] 96 % Dr. Reji Galaviz MD Work Phone: 6(556)[phone] [place] [address] 12-21-2024 08:45-0400 Systolic blood pressure 134 mm[Hg] Dr. Reji Galaviz MD Work Phone: [phone])[phone] [address] 12-21-2024 08:38-0400 Body temperature 97.6 [degF] Dr. Reji Galaviz MD Work Phone: [phone] [address] 12-21-2024 07:17-0400 Body height 172.[address] Reji Galaviz MD Work Phone: [phone])[phone] [address] 12-21-2024 07:17-0400 Body mass index (BMI) [Ratio] 28.8 kg/m2 Dr. Reji Galaviz MD Work Phone: [phone] [address] 12-21-2024 07:17-04[address] Body weight [address] Reji Galaviz MD Work Phone: [facility] Encounters Encounter Date Encounter Type Care Provider Facility Start: 02-11-2025 End: 02-11-2025 Patient encounter procedure Marya MALONEY -[facility] Work Phone: Start: 02-11-2025 End: 02-11-2025 ambulatory Marya Ryan [place] Start: 12-21-2024 Non-patient / Non-visit Marshall Krause DO -[facility] Start: 12-21-2024 End: 12-21-2024 Admission to same day surgery center Marshall Krause DO -Endoscopy Work Phone: Start: 12-21-2024 End: 12-21-[address] Reji Galaviz MD Work Phone: -Endoscopy Start: 12-10-2024 End: 12-10-2024 Patient encounter procedure Marshall Krause DO -[facility] Work Phone: Start: 12-10-2024 End: 12-10-[address] Reji Galaviz MD Work Phone: -[facility] Start: 01-18-2006 End: 01-18-2006 Patient encounter procedure Linus Montilla Work Phone: [facility] Start: 01-18-2006 Results Only Linus Montilla Work Phone: [facility] Procedures Date Procedure Procedure Detail Performing Clinician Start: 12-21-[address] Reed Galaviz MD Work Phone: Start: 01-18-2006 CONVERTED SURGICAL PATHOLOGY Linus Escamilla devon aMximinogopal Work Phone: Plan of Treatment Date Care Activity Detail Author Start: 12-21-2024 Egd transoral biopsy single/multiple EGD BIOPSY SINGLE/MULTIPLE [facility] Start: 12-21-2024 Patient [place] [facility] P[place] Date Payer Category Payer Self-pay 2012 Unknown [id number] Unknown [id number] [id number] Unknown [id number] [id number] [id number] Unknown [id number] [id number] [id number] Unknown [id number] [id number] [id number] Social History Date Type Detail Facility Tobacco smoking stat us NHIS Unknown if ever smoked [facility] Sex Assigned At Not on file [facility] Start: 12-10-2024 End: 02-11-2025 Tobacco smoking status NHIS Never smoked tobacco (finding) [facility] Start: 1980 Sex Assigned At Male [facility] Sex Male [facility] Goals Date Patient Goal Desired Activity /State Mental Status Date Assessment Result Facility 12-21-2024 Cognitive function Voice/Name [facility] Work Phone: Clinical Notes 12-10-2024 to 02-11-2025 Note Date & Type Note Facility 02-11-2025 Progress note [facility] 02-11-2025 Progress note Note Date/Time February 11, 2025 11:59pm [facility] [address] [place] [address] OFFICE VISIT Date of Service: 02/11/25 MR#: [id number] Acct: [id number] Name: EDEN GALINDO Rep #: [id number] : 1980 Provider: HAIDER Ryan Age/Sex: 44/M [place] [facility] Status: Signed Intake Vital Signs 12/21/24 07:17 02/11/25 15:42 Height 5 ft 8 in 5 ft 8 in Weight: 195 lb BMI 29.6 BP 137/79 H Respiration 16 Pulse 56 L Temp 97.8 F Temp Source Temporal Pulse Oximetry (%) 97 Oxygen Delivery Method room air Intake Visit Reasons: F/u Testing--Dysphagia Chief Complaint: f/u after EGD Allergies No Known Allergies Allergy (Verified 02/11/25 15:41) Medications ?Medication ?Instructions ?Recorded ?Confirmed ?Type omeprazole 40 mg capsule,delayed 40 mg PO QDAY #90 cap s 02/11/25 02/11/25 Rx release PFSH Medical History Alcohol use Difficulty swallowing Non-smoker Surgical History History of tonsillectomy and adenoidectomy History of hernia repair Family History Father Alcoholism Grandfather Alcoholism Social History Smoking Status: Never smoker alcohol intake: current alcohol intake frequency: holidays/special occasions only substance use type: does not use HPI HPI Chief Complaint: f/u after EGD Details: OV 12/10/2024 w/ Dr. Krause The patient reports experiencing a sensation of [...] for extrinsic compression or other mediastinal abnormalities.? EGD 12/21/2024 >50 eosinophils per high power field, Hastings's (Dr. Krause recommends repeating EGD in 1 year) - Biopsy: Greater than 50 eosinophils identified in the esophagus. 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 - Esophageal mucosal changes consistent with eosinophilic esophagitis. - Normal stomach. - Normal examined duodenum. - Biopsies were taken with a cold forceps for evaluation of eosinophilic esophagitis. Recommendation: - Discharge patient to home. - Resume previous diet. - Continue present medications. - Await pathology results. -Omeprazole 40 mg p.o. twice daily x 2 months, then 40 mg p.o. daily x 1 month I wanna know what I'm allergic to - presents today frustrated that he called our office several times requesting results and no one would give them to him - reports he requested results/recommendations be email to him and he was told we do not have the capability to do this - he began the visit frustrated and voiced this frustration, because he wants toknow his results and upset with our offices lack of communication The patient is a 44-year-old male presenting with concerns regarding potential food allergies contributing to his eosinophilic esophagitis. He reports no current symptoms but experienced trouble swallowing for approximately a decade. Despite these symptoms, he has not altered his diet but managed swallowing difficulty by drinking water. The patient underwent a biopsy which indicated greater than 50 eosinophils in the esophagus and the presence of columnar mucosawith goblet cell metaplasia, confirming eosinophilic esophagitis and the presence of Hastings's esophagus. Initially managed with pantoprazole treatment post-surgery, he reports discontinuation of the medication after one month due to perceived lack of symptomatic improvement. Additionally, the patient has been informed about elimination diets and potential allergies. No confirmatory allergy testing has been conducted. The patient expressed a preference for dietary modifications over medication to manage symptoms. There is no known family history of esophageal issues. Attestation: Documentation on this patient encounter was supported using ambient scribe technology/ voice AI technology. The patient consented to recording for the purpose of documenting the encounter. Provider reviewed content of the generatednote prior to signature. ROS Const Constitutional: No fatigue, fever(s) or weight change ENT ENT: No difficulty swallowing Gastro GI: No abdominal pain, belching, bloating, change in bowel habits, change in stool character, coffee ground emesis, constipation, cramping, diarrhea, heartburn, difficulty swallowing, feeling full early, excessive flatus, incontinent of stools, Vomiting blood/hematemesis, Blood in stool, loose stools,Black,tarry stools, nausea/dyspepsia, pain with swallowing, vomiting or other Musc Musculoskeletal: No joint pain Skin Skin: No yellowing of the eye or itchy eyes Psych Psychiatric: No anxiety and No depression Endo Endocrine: No fatigue or weight change Aller/Imm Allergy/Immunologic: No itchy eyes Rafal/Lymp Hematologic/Lymphatic: No easy bleeding or easy bruising ROS Narrative - Gastrointestinal: Denies current swallowing difficulties. - Respiratory: Reports past diagnosis of asthma resolved with environmental changes. - Allergies: Reports sneezing, watery eyes, and postnasal drip. Exam Const General: cooperative, healthy appearing, no acute distress and well developed Nutritional Appearance: average body habitus and well nourished Orientation: alert and oriented x3 HENMT Head: normocephalic Ears: hearing grossly normal bilaterally Mouth: moist mucous membranes Eyes Conjunctivae: conjunctivae normal Sclera: sclerae normal Neck Neck: normal visual inspection, full ROM and trachea midline Resp Effort & Inspection: normal respiratory effort, able to speak in complete sentences and symmetric chest movement Neuro General: patient alert and patient oriented x3 Cranial Nerves: other (CN's grossly intact, non-focal exam) Cognition: normal cognition Speech: speech normal Gait: normal gait Psych Appearance: grossly normal and well kempt Affect: normal affect Attitude: cooperative Thought Process: normal Assessment and Plan Assessment and Plan (1) Eosinophilic esophagitis: Status: Acute Plan: The patient's eosinophilic esophagitis will be managed initially with pantoprazole, at a dose of 40 mg once daily, for an 8 to 10-week duration, aiming to ameliorate inflammation. Due to his preference to identify specific food allergens, a referral to an ski technician for potential skin prick or blood allergy tests has been discussed. He has agreed to a trial of a two-food elimination diet, focusing on wheat and cow's milk. Endoscopic monitoring will be continued, with plans to re-evaluate esophageal eosinophil count post-dietaryintervention and medication adherence. (2) Barretts esophagus: Status: Acute Plan: Management of Hastings's esophagus continues with the recommendation of omeprazole to reduce the risk of esophageal adenocarcinoma. Despite his absence of symptoms, the patient was educated on the risks of cancer progression and thebenefits of continued medication. A genetic risk assessment test (TissueCypher) of his pathology specimen will be conducted at no cost to further stratify his cancer risk and influence monitoring intervals. Should assessment results show low risk, I still recommend treatment with PPI daily indefinitely. Orders: Referrals Allergy & Immunology K20.0 - Eosinophilic esophagitis Medications: New omeprazole take once daily 30 minutes before first meal 40 mg PO QDAY 90 caps 3RF Plan 44-year-old male with history of dysphagia, newly diagnosed eosinophilic esophagitis (biopsy: >50 eos/hpf), and Hastings's esophagus without dysplasia. Currently asymptomatic; reports poor adherence to prior medications and resistance to PPI therapy. Prefers dietary modification over pharmacologic therapy; interested in food allergy evaluation. Eosinophilic Esophagitis: Initiate a two-food elimination diet (wheat/gluten andcow's milk) as empiric dietary therapy, consistent with guideline recommendations for patients preferring dietary management. Discuss the potential for additional dietary restrictions if inadequate response. Counseled patient on chronic nature of EoE, risks of progression to fibrostenotic disease,and importance of long-term management. Hastings's Esophagus: Resume omeprazole 40 mg once daily, as recommended for chemoprevention and symptom control in Hastings's esophagus. Reinforce importanceof adherence. Allergy Evaluation: Schedule consultation with ski technician for assessment of food allergies. Note that allergy testing-based elimination diets have limited accuracy for EoE, but may be considered in conjunction with empiric dietary therapy per guidelines. Repeat upper endoscopy in 8?12 weeks to assess histologic and clinical response to therapy, as recommended for monitoring EoE. Patient preferences and shared decision-making are central to this plan, with emphasis on dietary therapy, allergy evaluation, and minimal pharmacologic intervention, while maintaining evidence-based surveillance and chemoprevention. A total of 60 minutes was spent on this visit reviewing associated records; previous notes (OV 12/10/2024, EGD 12/21/2024, Pathology), counseling the patient on (EoE & Hastings's diagnosis, recommendations per ACG and AGC guidelines, risksand benefits of medication/treatment compliance as well as risks of failed treatment compliance including but not limited to esophageal cancer), ordering tests (Rail Switchman Referral), adjusting meds (resume Omeprazole 40mg daily), importance of compliance with treatment and documenting the findings in the note. Patient Instructions: - Take pantoprazole 40 mg once daily as prescribed. - Visit an ski technician for allergy testing. - Begin a two-food elimination diet, avoiding wheat and cow's milk. - Follow-up for a repeat endoscopy in 8 to 12 weeks. - Monitor for any changes or symptoms such as difficulty swallowing or heartburn. - Understand the importance of medication compliance in preventing the progression of Hastings's esophagus to esophageal cancer and for healing of EoE. - Return for additional consultations as needed, especially if symptoms develop. Plan Details Follow Up: 4 Months Coding Level of Care Code Attention Dolores Diagnoses Eosinophilic esophagitis K20.0 Barretts esophagus K22.70 Time Spent (min) 60 Comment see assessment and plan Clinical Quality Measures Smoking Screening Smoking Status: Never smoker 02/15/25 1035 <Electronically signed by Marya MALONEY> Date _ Marya MALONEY Cosigner Signature: Date (if applicable) CC: ~ [place] [place] [employer] Work Phone: 1(640) 407-631508-25-2025 History and physical note Author Marshall Krause [facility] Note Date/Time December 21, 2024 7: 24am [facility] Medical Records Department [address] [place] [address] History & Physical Exam 12/21/24 0722 MR#: [id number] Acct: [id number] Name: EDEN GALINDO Rep #: [id number] : 1980 44 From: Marshall Krause DO PCP: Dr. Nate Lux MD Status:[facility] Location: [place] [address] HPI - General General Date of Admission: 12/21/24 Date of Service: 12/21/24 Chief Complaint: dysphagia HPI Narrative *I established 12.10.24 pt reports that for the past several years he has had trouble with meat and dry food; states he can feel it get stuck at the top of his stomach. States he is sometimes able to get it to go down with a drink, other times states he has to vomit in order to dislodge it. Pt reports he has never had an EGD before. [facility] Medical History Alcohol use Difficulty swallowing Non-smoker Home Medications ?Medication ?Instructions ?Recorded ?Last Taken ?Type NK 12/10/24 Unknown History Allergy/AdvReac Type Severity Reaction Status Date / Time No Known Allergies Allergy Verified 12/21/24 07:17 Family History Father Alcoholism Grandfather Alcoholism Surgical History History of tonsillectomy and adenoidectomy History of hernia repair Social History Smoking Status: Never smoker alcohol intake: current alcohol intake frequency: holidays/special occasions only substance use type: does not use ROS Constitutional Constitutional: Denies fatigue, fever(s), poor appetite, weight gain or weight loss Gastrointestinal Gastrointestinal: Denies belching, bloating, change in bowel habits, change in stool character, chewing difficulty, coffee ground emesis, constipation, cramping, diarrhea, dyspepsia, dysphagia, early satiety, excessive flatus, fecalincontinence, heartburn, hematemesis, hematochezia, hemorrhoids, loose stools, melena, nausea, odynophagia, rectal bleeding, tenesmus, vomiting or weight changes Vital Signs Vital Signs Vital Signs: 12/21/24 07:17 12/21/24 07:17 Temperature 97.8 F Temperature Source Temporal Pulse Rate 78 Respiratory Rate 16 Respiratory Pattern Normal Blood Pressure 128/95 H Blood Pressure Mean 106 Blood Pressure Source Monitor Blood Pressure Position Sitting Blood Pressure Location Right Arm Pulse Ox 99 Oxygen Delivery Method Room Air Weight Weight: 189 lb 9.561 oz Body Mass Index (BMI) 28.8 Physical Exam Const alert, oriented x3, no apparent distress and healthy appearing General Appearance: cooperative GI normal to inspection, nondistended, normoactive bowel sounds, soft to palpation,non-tender and non-distended Percussion: normal to percussion Rectal Exam: deferred Assessment & Plan Assessment/Plan (1) Dysphagia: PLAN: Assessment and Plan Assessment and Plan (1) [...] for extrinsic compression or other mediastinal abnormalities.? 12/21/24 0724 <Electronically signed by Marshall Krause DO> Cosigner Signature (if applicable): CC: Dr. Nate Lux MD; Marshall Krause DO~ Signed [facility] Work Phone: 1(853) 907-840208-25-2025 Consult note [facility] Medical Records Department [address] [place] [address] Anesthesia Postop Eval I 12/21/24 0837 MR#: [id number] Acct: [id number] Name: EDEN GALINDO Rep #: [id number] : 1980 44 From: Sylvester Rice PCP: Dr. Nate Lux MD Status:REG SDC Y Race: C Location: [place] [address] Anesthesia: Postop Eval I Current Vital Signs Temperature: 97.6 F Pulse Rate: 68 Blood Pressure: 123/88 Respiratory Rate: 16 Pulse Ox: 95 Oxygen Delivery Method: Room Air Assessment Airway patent: Yes Spontaneous unlabored respirations: Yes Mental status: Asleep nausea: No Vomiting: No Anesthesia Complication: No Fluid Hydration Crystalloid volume administer (ml): 400 Total IV fluid infused: 400 Progress Note Anesthesia document: Postop Eval 1 completed: Yes 12/21/24 0838 > Date _ Sylvester Angulo Signature: Date CC: ~ Signed [facility]08-25-2025 Procedure note [facility] Medical Records Department [address] [place] [address] EGD Report MR#: [id number] Acct: [id number] Name: EDEN GALINDO Rep #: [id number] : 1980 44 From: Marshall Krause DO PCP: Dr. Nate Lux MD Status:[facility] Patient Name: Eden Galindo Procedure Date: 12/21/2024 8:10 AM Date of : 1980 Age: 44 Procedure: Upper GI endoscopy Indications: Dysphagia Providers: Marshall Krause DO Referring MD: Nate Lux Medicines: Monitored Anesthesia Care Patient Profile: This is a 44 year old male. Refer to note in patient chart for documentation of history and physical. Patient has symptoms of dysphagia with solids. Complications: No immediate complications. Procedure: Pre-Anesthesia Assessment: - Prior to the procedure, a History and Physical was performed, and patient medications and allergies were reviewed. The patient is competent. The risks and benefits of the procedure and the sedation options and risks were discussed with the patient. All questions were answered and informed consent was obtained. Patient identification and proposed procedure were verified by the physician in the pre-procedure area. Mental Status Examination: alert and oriented. Airway Examination: normal oropharyngeal airway and neck mobility. Respiratory Examination: clear to auscultation. CV Examination: normal. Prophylactic Antibiotics: The patient does not require prophylactic antibiotics. Prior Anticoagulants: The patient has taken no anticoagulant or antiplatelet agents except for NSAID medication. ASA Grade Assessment: II - A patient with mild systemic disease. After reviewing the risks and benefits, the patient was deemed in satisfactory condition to undergo the procedure. The anesthesia plan was to use monitored anesthesia care (MAC). Immediately prior to administration of medications, the patient was re-assessed for adequacy to receive sedatives. The heart rate, respiratory rate, oxygen saturations, blood pressure, adequacy of pulmonary ventilation, and response to care were monitored throughout the procedure. The physical status of the patient was re-assessed after the procedure. After obtaining informed consent, the endoscope was passed under direct vision. Throughout the procedure, the patient's blood pressure, pulse, and oxygen saturations were monitored continuously. The gastroscope was introduced through the mouth, and advanced to the second part of duodenum. The upper GI endoscopy was accomplished without difficulty. The patient tolerated the procedure well. Scope In: 8:19:43 AM Scope Out: 8:25:55 AM Total Procedure Duration Time 0 hours 6 minutes 12 seconds Findings: Mucosal changes including ringed esophagus, feline appearance, longitudinal furrows, small-caliber esophagus and circumferential folds were found in the middle third of the esophagus and in the lower third of the esophagus. Esophageal findings were graded using the Eosinophilic Esophagitis Endoscopic Reference Score (EoE-EREFS) as: Edema Grade 1 Present (decreased clarity or absence of vascular markings), Rings Grade 2 Moderate (distinct rings that do not occlude passage of diagnostic 8-10 mm endoscope), Exudates Grade 1 Mild (scattered white lesions involving less than 10 percent of the esophageal surface area), Furrows Grade 1 Mild (vertical lines without visible depth) and Stricture present. Biopsies were obtained from the proximal and distal esophagus with cold forceps for histology of suspected eosinophilic esophagitis. Verification of patient identification for the specimen was done. Estimated blood loss was minimal. The entire examined stomach was normal. The examined duodenum was normal. Impression: - Esophageal mucosal changes consistent with eosinophilic esophagitis. - Normal stomach. - Normal examined duodenum. - Biopsies were taken with a cold forceps for evaluation of eosinophilic esophagitis. Recommendation: - Discharge patient to home. - Resume previous diet. - Continue present medications. - Await pathology results. -Omeprazole 40 mg p.o. twice daily x 2 months, then 40 mg p.o. daily x 1 month Procedure Code(s): --- Professional --- 22293, Esophagogastroduodenoscopy, flexible, transoral; with biopsy, single or multiple CPT copyright 2021 [employer]. All rights reserved. The codes documented in this report are preliminary and upon baggage agent supervisor review may be revised to meet current compliance requirements. Marshall Krause DO 12/21/2024 8:31:00 AM This report has been signed electronically. Number of Addenda: 0 Note Initiated On: 12/21/2024 8:10 AM 12/21/24830 Date _ Marshall Krause DO Cosigner Signature: Date (if indicated) CC: Dr. Nate Lux MD; Marshall Krause ~ Date Dictated: 12/21/24809 Date Transcribed: Manager Of Change: RF Signed [facility]08-25-2025 Procedure note [facility] Medical Records Department [address] [place] [address] Provation Physician Letter MR#: [id number] Acct: [id number] Name: EDEN GALINDO Rep #: [id number] : 1980 44 From: Marshall Krause DO PCP: Dr. Nate Lux MD Status:REG [facility] 12/21/2024 Nate Lux [address] [place] [address] Re : Upper GI endoscopy procedure for Eden Galindo Dear Dr. Lux This procedure was performed on Saturday, December 21, 2024. My impressions and recommendations are as follows: Impressions : - Esophageal mucosal changes consistent with eosinophilic esophagitis. - Normal stomach. - Normal examined duodenum. - Biopsies were taken with a cold forceps for evaluation of eosinophilic esophagitis. Recommendations : - Discharge patient to home. - Resume previous diet. - Continue present medications. - Await pathology results. -Omeprazole 40 mg p.o. twice daily x 2 months, then 40 mg p.o. daily x 1 month My findings are described in the full procedure note, which is enclosed. If I can be of further assistance, please feel free to contact me at . Sincerely, Marshall Krause DO 12/21/2024 8:31:00 AM This report has been signed electronically. 12/21/24830 Date _ Marshall Krause DO Cosigner Signature: Date (if indicated) CC: Dr. Nate Lux MD; Marshall Krause DO ~ Date Dictated: 12/21/24809 Date Transcribed: Manager Of Change: RF Signed [facility]08-25-2025 Consult note [facility] Medical Records Department [address] [place] [address] Pre-Anesthesia Evaluation 12/21/24739 MR#: [id number] Acct: [id number] Name: EDEN GALINDO Rep #: [id number] : 1980 44 From: Toñito Newell MD PCP: Dr. Nate Lux MD Status:REG [facility] Y Race: C Location: [place] [address] ASA Classification* ASA Classification ASA Classification: 2 Assessment & Plan Anesthesia* Anesthesia Assessment Anesthesia Assessment: Discussed sedation and/or anesthesia options, risks, benefits, and alternatives with patient/parents/legal guardian/POA. Questions invited. The patient/parents/legal guardian/POA seems to understand and agrees to proceedwith anesthesia plan. Reviewed the physical assessment, medical history, allergy history and patient home medications list prior to surgery/procedure/anesthetic and documented any changes. Performed airway and anesthesia risk assessments. 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 When Was Last Pacemaker Check QUESTION #4 FULL TEXT: You/Your Family Experience fever (hyperthermia) with Anesthesia Last Oral Intake Last Oral intake: Last Oral Intake NPO since 21:00 12/21/24 07:17 Meds taken in AM with sips of No 12/21/24 07:17 water? Meds patient instructed to take am of surgery PONV PONV - chemical equipment sales engineer: PONV - chemical equipment sales engineer Female No 12/18/24 15:23 HX of Motion Sickness No 12/18/24 15:23 HX of N/V After Surgery No 12/18/24 15:23 Non-Smoker Yes 12/18/24 15:23 Duration of Surgery greater No 12/18/24 15:23 than 60 minutes Number of Risk Factors 1 12/18/24 15:23 PONV Score Low Risk 12/18/24 15:23 Height & Weight Height & Weight: Anesthesia: Height & Weight Height 5 ft 8 in 12/21/24 07:17 Weight: 86 kg 12/21/24 07:17 Body Mass Index (BMI) 28.8 12/21/24 07:17 Respiratory Assessment Respiratory Assessment - chemical equipment sales engineer: Respiratory Tract Infection Hx - chemical equipment sales engineer Hx Respiratory Tract Infection No 12/18/24 15:23 STOP Sleep Apnea STOP Sleep Apnea - chemical equipment sales engineer: STOP Sleep Apnea - chemical equipment sales engineer Hx Hypertension No 12/18/24 15:23 Hx Sleep Apnea No 12/18/24 15:23 CPAP BIPAP Do you snore loudly (louder No 12/18/24 15:23 than talking or can be heard Do you often feel tired/ No 12/18/24 15:23 fatigued/ sleepy during daytime? Has anyone observed you stop No 12/18/24 15:23 breathing during sleep? STOP Results Negative 12/18/24 15:23 QUESTION #5 FULL TEXT : Do you snore loudly (louder than talking or can be heard through closeddoors)? 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 Specify any problems Hx of Preganancy in last 3 N/A 12/18/24 15:23 Months Nurse Filling Out Transfusion DSCHRIBER 12/18/24 15:23 & Questions: Date: 12/18/24 12/18/24 15:23 Time: 12/18/24 15:23 Patient unable to answer at this time (ie. confused, unrespo /Reproduction History /Reproductive History - chemical equipment sales engineer: /Reproductive Hx- chemical equipment sales engineer Hx Now No 12/18/24 15:23 Gestational Age (in weeks): EDC: Hx Hx Para Hx Section SAB No 12/18/24 15:23 Active Medications Active Medications: Current Medications Generic Name Dose Route Start Last Admin Trade Name Freq PRN Reason Stop Dose Admin Lactated Ringer's 1,000 mls @ 15 mls/hr 12/21/24 07:15 12/21/24 07:25 IV 15 mls/hr .Q48H GIACOMO Administration PFSH Medical History Alcohol use Difficulty swallowing Non-smoker Home Medications ?Medication ?Instructions ?Recorded ?Last Taken ?Type NK 12/10/24 Unknown History Allergy/AdvReac Type Severity Reaction Status Date / Time No Known Allergies Allergy Verified 12/21/24 07:17 Family History Father Alcoholism Grandfather Alcoholism Surgical History History of tonsillectomy and adenoidectomy History of hernia repair Social History Smoking Status: Never smoker alcohol intake: current alcohol intake frequency: holidays/special occasions only substance use type: does not use Review of Systems (Anesthesia) ROS Narrative System reviewed and no additional complaints, except as documented. Physical Exam Const alert and oriented x3 Orientation / Consciousness: awake Resp normal respiratory effort and normal air movement Cardio regular rate and regular rhythm Extremity full ROM Neuro oriented x3 and moves all extremities 12/21/24 0743 D> Date _ Toñito Angulo Signature: Date CC: ~ Signed [facility]08-25-2025 History and physical note [facility] Medical Records Department [address] [place] [address] History & Physical Exam 12/21/24 0722 MR#: [id number] Acct: [id number] Name: EDEN GALINDO Rep #: [id number] : 1980 44 From: Marshall Krause DO PCP: Dr. Nate Lux MD Status:[facility] Location: [place] [address] HPI - General General Date of Admission: 12/21/24 Date of Service: 12/21/24 Chief Complaint: dysphagia HPI Narrative *BGI established 12.10.24 pt reports that for the past several years he has had trouble with meat and dry food; states he can feel it get stuck at the top of his stomach. States he is sometimes able to get it to go down with a drink, other times states he has to vomit in order to dislodge it. Pt reports he has never had an [facility] Medical History Alcohol use Difficulty swallowing Non-smoker Home Medications ?Medication ?Instructions ?Recorded ?Last Taken ?Type NK 12/10/24 Unknown History Allergy/AdvReac Type Severity Reaction Status Date / Time No Known Allergies Allergy Verified 12/21/24 07:17 Family History Father Alcoholism Grandfather Alcoholism Surgical History History of tonsillectomy and adenoidectomy History of hernia repair Social History Smoking Status: Never smoker alcohol intake: current alcohol intake frequency: holidays/special occasions only substance use type: does not use ROS Constitutional Constitutional: Denies fatigue, fever(s), poor appetite, weight gain or weight loss Gastrointestinal Gastrointestinal: Denies belching, bloating, change in bowel habits, change in stool character, chewing difficulty, coffee ground emesis, constipation, cramping, diarrhea, dyspepsia, dysphagia, earlysatiety, excessive flatus, fecalincontinence, heartburn, hematemesis, hematochezia, hemorrhoids, loose stools, melena, nausea, odynophagia, rectal bleeding, tenesmus, vomiting or weight changes Vital Signs Vital Signs Vital Signs: 12/21/24 07:17 12/21/24 07:17 Temperature 97.8 F Temperature Source Temporal Pulse Rate 78 Respiratory Rate 16 Respiratory Pattern Normal Blood Pressure 128/95 H Blood Pressure Mean 106 Blood Pressure Source Monitor Blood Pressure Position Sitting Blood Pressure Location Right Arm Pulse Ox 99 Oxygen Delivery Method Room Air Weight Weight: 189 lb 9.561 oz Body Mass Index (BMI) 28.8 Physical Exam Const alert, oriented x3, no apparent distress and healthy appearing General Appearance: cooperative GI normal to inspection, nondistended, normoactive bowel sounds, soft to palpation,non-tender and non-distended Percussion: normal to percussion Rectal Exam: deferred Assessment & Plan Assessment/Plan (1) Dysphagia: PLAN: Assessment and Plan Assessment and Plan (1) Dysphagia: Plan: The patient reports experiencing a sensation of food sticking or getting caught in the chest when swallowing solid foods.?This has been present for months to years.?The patient may report feeling theneed to repeatedly swallow, or take multiple sips [...] Mechanical Obstruction:?Esophageal strictures (e.g., peptic stricture, eosinophilic esophagitis),webs, rings, or tumors.? * Motility Disorders:?Achalasia, esophageal [...] for extrinsic compression or other mediastinal abnormalities.? 12/21/24723 Cosigner Signature (if applicable): CC: Dr. Nate Lux MD; Marshall Krause, ~ Signed [facility]08-25-2025 [facility] Medical Records Department [address] [place] [address] History Physical Exam 12/21/24 07 MR#: [id number] Acct: [id number] Name: EDEN GALINDO Rep #: [id number] : 1980 44 From: Marshall Krause DO PCP: Dr. Nate Lux MD Status:[facility] Location: [place] [address] HPI - General General Date of Admission: 12/21/24 Date of Service: 12/21/24 Chief Complaint: dysphagia HPI Narrative *[facility] established 12.10.24 pt reports that for the past several years he has had trouble with meat and dry food; states he can feel it get stuck at the top of his stomach. States he is sometimes able to get it to go down with a drink, other times states he has to vomit in order to dislodge it. Pt reports he has never had an EGD before. [facility] Medical History Alcohol use Difficulty swallowing Non-smoker Home Medications ???Medication ???Instructions ???Recorded ???Last Taken ???Type NK 12/10/24 Unknown History Allergy/AdvReac Type Severity Reaction Status Date / Time No Known Allergies Allergy Verified 12/21/24 07:17 Family History Father Alcoholism Grandfather Alcoholism Surgical History History of tonsillectomy and adenoidectomy History of hernia repair Social History Smoking Status: Never smoker alcohol intake: current alcohol intake frequency: holidays/special occasions only substance use type: does not use ROS Constitutional Constitutional: Denies fatigue, fever(s), poor appetite, weight gain or weight loss Gastrointestinal Gastrointestinal: Denies belching, bloating, change in bowel habits, change in stool character, chewing difficulty, coffee ground emesis, constipation, cramping, diarrhea, dyspepsia, dysphagia, early satiety, excessive flatus, fecal incontinence, heartburn, hematemesis, hematochezia, hemorrhoids, loose stools, melena, nausea, odynophagia, rectal bleeding, tenesmus, vomiting or weight changes Vital Signs Vital Signs Vital Signs: 12/21/24 07:17 12/21/24 07:17 Temperature 97.8 F Temperature Source Temporal Pulse Rate 78 Respiratory Rate 16 Respiratory Pattern Normal Blood Pressure 128/95 H Blood Pressure Mean 106 Blood Pressure Source Monitor Blood Pressure Position Sitting Blood Pressure Location Right Arm Pulse Ox 99 Oxygen Delivery Method Room Air Weight Weight: 189 lb 9.561 oz Body Mass Index (BMI) 28.8 Physical Exam Const alert, oriented x3, no apparent distress and healthy appearing General Appearance: cooperative GI normal to inspection, nondistended, normoactive bowel sounds, soft to palpation, non-tender and non- distended Percussion: normal to percussion Rectal Exam: deferred Assessment Plan Assessment/Plan (1) Dysphagia: PLAN: Assessment and Plan Assessment and Plan (1) [...] diagnosis should be considered, including: * Mechanical Obstruction:???Esophageal strictures (e.g., peptic stricture, eosinophilic esophagitis), webs, rings, or tumors.??? * Motility Disorders:???Achalasia, esophageal spasm, or other motility disorders.??? * Extrinsic Compression:???Mediastinal masses, enlarged lymph nodes, or vascular abnormalities.??? [...] for extrinsic compression or other mediastinal abnormalities.??? 12/21/24 0724 Cosigner Signature (if applicable): CC: Dr. Nate Lux MD; Marshall Krause DO [facility] Progress note Author Marshall Krause [facility] Note Date/Time December 10, 2024 4: 42pm [facility] [address] [place] [address] OFFICE VISIT Date of Service: 12/10/24 MR#: [id number] Acct: [id number] Name: EDEN GALINDO Rep #: [id number] : 1980 Provider: Marshall Krause DO Age/Sex: 44/M [place] [facility] [place] Status: Signed Intake Intake Visit Reasons: Dysphagia [...] any questions or concerns at this time. [facility] Surgical History (Updated 12/10/24 @ 15:52 by Tesha García) History of hernia repair History of tonsillectomy Family History (Updated 12/10/24 @ 15:52 by Tesha García) Father Alcoholism Grandfather Alcoholism Social History (Updated 12/10/24 @ 15:34 by Tesha García) Smoking Status: Never smoker alcohol intake: current alcohol intake frequency: holidays/special occasions only substance use type: does not use HPI HPI Details: EDEN GALINDO, is a 44 M who presents to [...] vis,new,level 4 Diagnoses Dysphagia R13.10 12/10/24 1642 <Electronically signed by Marshall adame DO> Date _ Marshall Krause DO Adele Signature: Date (if applicable) CC: ~ [facility] Work Phone: 1(307) 219-435808-14-2025 Evaluation note* Diagnosis Onset Date Resolution Status Admit Date Dysphagia noneactive December 10, 2 025 3:30pm Dysphagia acute December 21, 2 025 6:52am [facility] Work Phone: 1(191) 156-995208-14-2025 Evaluation note* Diagnosis Onset Date Resolution Status Admit Date Dysphagia noneactive December 10, 2 025 3:30pm Dysphagia acute December 21, 2 025 6:52am Barretts esophagus acute 2024 3:29pm Eosinophilic esophagitis acute February 11, 2025 3:29pm [facility] Work Phone: 1(661) 204-592008-14-2025 [facility] [address] [place] [address] OFFICE VISIT Date of Service: 12/10/24 MR#: [id number] Acct: [id number] Name: EDEN GALINDO Sean Rep #: [id number] : 1980 Provider: Marshall Krause DO Age/Sex: 44/M Location: [facility] Status: Signed Intake Intake Visit Reasons: Dysphagia [...] does not use HPI HPI Details: EDEN GALINDO, is a 44 M who presents to the office today for initial consult. *[facility] established 8 pt reprots that [...] Blood in stool, loose stools, Black,tarry stools, naus ea/dyspepsia, pain with swallowing, vomiting or other Musc [...] months to years.?The patient may report feeling theneed to repeatedly swallow, or take multiple sips [...] Mechanical Obstruction:?Esophageal strictures (e.g., peptic stricture, eosinophilic esophagitis),webs, rings, or tumors.? * Motility Disorders:?Achalasia, esophageal [...] vis,new,level 4 Diagnoses Dysphagia R13.10 12/10/24 1642 d DO> Date _ Marshall Friend DO Adele Signature: Date (if applicable) CC: ~ [facility] Services[facility] Author Toñito Newell [facility] Note Date/Time December 21, 2024 7: 43am [facility] Medical Records Department [address] [place] [address] Pre-Anesthesia Evaluation 12/21/24 0740 MR#: [id number] Acct: [id number] Name: EDEN GALINDO Rep #: [id number] : 1980 44 From: Toñito Newell MD PCP: Dr. Nate Lux MD Status:REG SDC Y Race: C Location: [place] [address] ASA Classification* ASA Classification ASA Classification: 2 Assessment & Plan Anesthesia* Anesthesia Assessment Anesthesia Assessment: Discussed sedation and/or anesthesia options, risks, benefits, and alternatives with patient/parents/legal guardian/POA. Questions invited. The patient/parents/legal guardian/POA seems to understand and agrees to proceedwith anesthesia plan. Reviewed the physical assessment, medical history, allergy history and patient home medications list prior to surgery/procedure/anesthetic and documented any changes. Performed airway and anesthesia risk assessments. 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 When Was Last Pacemaker Check QUESTION #4 FULL TEXT: You/Your Family Experience fever (hyperthermia) with Anesthesia Last Oral Intake Last Oral intake: Last Oral Intake NPO since 21:00 12/21/24 07:17 Meds taken in AM with sips of No 12/21/24 07:17 water? Meds patient instructed to take am of surgery PONV PONV - chemical equipment sales engineer: PONV - chemical equipment sales engineer Female No 12/18/24 15:23 HX of Motion Sickness No 12/18/24 15:23 HX of N/V After Surgery No 12/18/24 15:23 Non-Smoker Yes 12/18/24 15:23 Duration of Surgery greater No 12/18/24 15:23 than 60 minutes Number of Risk Factors 1 12/18/24 15:23 PONV Score Low Risk 12/18/24 15:23 Height & Weight Height & Weight: Anesthesia: Height & Weight Height 5 ft 8 in 12/21/24 07:17 Weight: 86 kg 12/21/24 07:17 Body Mass Index (BMI) 28.8 12/21/24 07:17 Respiratory Assessment Respiratory Assessment - chemical equipment sales engineer: Respiratory Tract Infection Hx - chemical equipment sales engineer Hx Respiratory Tract Infection No 12/18/24 15:23 STOP Sleep Apnea STOP Sleep Apnea - chemical equipment sales engineer: STOP Sleep Apnea - chemical equipment sales engineer Hx Hypertension No 12/18/24 15:23 Hx Sleep Apnea No 12/18/24 15:23 CPAP BIPAP Do you snore loudly (louder No 12/18/24 15:23 than talking or can be heard Do you often feel tired/ No 12/18/24 15:23 fatigued/ sleepy during daytime? Has anyone observed you stop No 12/18/24 15:23 breathing during sleep? STOP Results Negative 12/18/24 15:23 QUESTION #5 FULL TEXT : Do you snore loudly (louder than talking or can be heard through closed doors)? 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 Specify any problems Hx of Preganancy in last 3 N/A 12/18/24 15:23 Months Nurse Filling Out Transfusion DSCHRIBER 12/18/24 15:23 & Questions: Date: 12/18/24 12/18/24 15:23 Time: 15:12/18/24 15:23 Patient unable to answer at this time (ie. confused, unrespo /Reproduction History /Reproductive History - chemical equipment sales engineer: /Reproductive Hx- chemical equipment sales engineer Hx Now No 12/18/24 15:23 Gestational Age (in weeks): EDC: Hx Hx Para Hx Section SAB No 12/18/24 15:23 Active Medications Active Medications: Current Medications Generic Name Dose Route Start Last Admin Trade Name Freq PRN Reason Stop Dose Admin Lactated Ringer's 1,000 mls @ 15 mls/hr 12/21/24 07:15 12/21/24 07:25 IV 15 mls/hr .Q48H GIACOMO Administration PFSH Medical History Alcohol use Difficulty swallowing Non-smoker Home Medications ?Medication ?Instructions ?Recorded ?Last Taken ?Type NK 12/10/24 Unknown History Allergy/AdvReac Type Severity Reaction Status Date / Time No Known Allergies Allergy Verified 12/21/24 07:17 Family History Father Alcoholism Grandfather Alcoholism Surgical History History of tonsillectomy and adenoidectomy History of hernia repair Social History Smoking Status: Never smoker alcohol intake: current alcohol intake frequency: holidays/special occasions only substance use type: does not use Review of Systems (Anesthesia) ROS Narrative System reviewed and no additional complaints, except as documented. Physical Exam Const alert and oriented x3 Orientation / Consciousness: awake Resp normal respiratory effort and normal air movement Cardio regular rate and regular rhythm Extremity full ROM Neuro oriented x3 and moves all extremities 12/21/24 0743 <Electronically signed by Toñito Adame> Date _ Toñito Angulo Signature: Date CC: ~ Signed [facility] Work Phone: Consult note Author AA Sylvester Rice [facility] Note Date/Time December 21, 2024 8: 38am [facility] Medical Records Department [address] [facility] [address] [address] [place] [place] [address] Anesthesia Postop Eval I 12/21/24 0837 MR#: [id number] Acct: [id number] Name: EDEN GALINDO Rep #: [id number] : 1980 44 From: Sylvester Rice PCP: Dr. Nate Lux MD Status:[facility] Y Race: C Location: [place] [address] Anesthesia: Postop Eval I Current Vital Signs Temperature: 97.6 F Pulse Rate: 68 Blood Pressure: 123/88 Respiratory Rate: 16 Pulse Ox: 95 Oxygen Delivery Method: Room Air Assessment Airway patent: Yes Spontaneous unlabored respirations: Yes Mental status: Asleep nausea: No Vomiting: No Anesthesia Complication: No Fluid Hydration Crystalloid volume administer (ml): 400 Total IV fluid infused: 400 Progress Note Anesthesia document: Postop Eval 1 completed: Yes 12/21/24 0838 <Electronically signed by Sylvester Rice > Date _ Sylvester Angulo Signature: Date CC: ~ Signed [facility] Work Phone: Evaluation noteNo assessment information available [facility] Work Phone: Hospital Discharge instructionsAmbulatory Orders* Allergy & Immunology Location: None Selected [facility] Work Phone: Reason for referral (narrative)No reason for referral information availableE[facility] Work Phone: Chief Complaint and Reason for Visit Chief Complaint Admit Date Dysphagia December 10, 2024 3: 30pm Reason for Visit Admit Date Dysphagia December 10, 2024 3: 30pm Dysphagia December 21, 2024 6: 52am Chief Complaint Admit Date Dysphagia December 10, 2024 3: 30pm F/u Testing--Dysphagia February 11 3:29pm Reason for Visit Admit Date Dysphagia December 10, 2024 3: 30pm Dysphagia December 21, 2024 6: 52am Barretts esophagus February 11, 2025 3 :29pm Eosinophilic esophagitis February 11, 025 3:29pm Advance Directives Advance Directive Response Recorded Date/ Time Do you have a Healthcare Power of Drip Molder? No December 18, 2024 3:23pm Summary Purpose Family History No Family History Records Found Additional Source Comments Source Comments (unrecognize d section and content) In the event this informatio n is protected by the Federal Confidentiality of Alcohol and Drug Abuse Patient Records regulations: The Federal rules restrict any use of the information to criminally investigate or prosecute any alcohol or drug abuse patient.[facility] Care Teams (unrecognized sec tion and content) [...] End: December 10, 2024 Dr. Marshall Krause DO Attending Provider Active Start: December 10, 2024 End: December 10, 2024 Team Status: Active Member Role/Relationship Status Dates Dr. Nate Lux MD Primary Care Provider Active Team Status: Inactive Member Role/Relationship Status Dates Dr. Marshall Krause DO Attending Provider Active Start: December 21, 2024 End: December 21, 2024 Dr. Nate Lux MD Primary Care Provider Active Start: December 21, 2024 End: December 21, 2024 Dr. Nate Lux MD Referring Provider Active St art: December 21, 2024 End: December 21, 2024 Team Status: Active Member Role/Relationship Status Dates Dr. Marshall Krause DO Attending Provider Active Start: December 21, 2024 Dr. Marshall Krause DO Other Provider Active St art: December 21, 2024 Dr. Nate Lux MD Primary Care Provider Active Start: December 21, 2024 Dr. Nate Lux MD Referring Provider Active St art: December 21, 2024 Team Status: Active Member Role/Relationship Status Dates Dr. Nate Lux MD Primary care physician Active Team Status: Inactive Member Role/Relationship Status Dates Dr. Reji Galaviz MD Primary care physician Act jacki Start: December 10, 2024 End: December 10, 2024 Dr. Reji Galaviz MD Referring Provider Active Start: December 10, 2024 End: December 10, 2024 Dr. Marshall Krause DO Attending physician Active Start: December 10, 2024 End: December 10, 2024 Team Status: Inactive Member Role/Relationship Status Dates Dr. Marshall Krause DO Attending physician Active Start: December 21, 2024 End: December 21, 2024 Dr. Nate Lux MD Primary care physician Active Start: December 21, 2024 End: December 21, 2024 Dr. Nate Lux MD Referring Provider Active St art: December 21, 2024 End: December 21, 2024 Team Status: Active Member Role/Relationship Status Dates Dr. Marshall Krause DO Attending physician Active Start: December 21, 2024 Dr. Marshall Krause DO Nurse Practitioner Active Start: December 21, 2024 Dr. Nate Lux MD Primary care physician Active Start: December 21, 2024 Dr. Nate Lux MD Referring Provider Active St art: December 21, 2024 Team Status: Inactive Member Role/Relationship Status Dates Dr. Nate Lux MD Primary care physician Active Start: February 11, 2025 End: February 11, 2025 Dr. Nate Lux MD Referring Provider Active St art: February 11, 2025 End: February 11, 2025 HAIDER Valladares Attending physician Active Start: February 11, 2025 End: February 11, 2025 Goals (unrecognized section and content) Goals may be documented in a n alternate section (unrecognized sect ion and content) No Status Records Found INFORMATION SOURCE (unrecogn ized section and content) DATE CREATED AUTHOR 02/16/[address] [facility] FOR RECORDS PERTAINING TO PATIENTS WHO [...] BE BASED ON THE PRIMARY CLINICAL RECORDS. [employer] provides no warranty or guarantee of the accuracy or completeness of information in this document.
[2025-04-20 00:19] VITALS: BP 142/94; PULSE 71; RESP 18; TEMP 36.3; O2SAT 98
== END 2025-04-20 00:21 | disposition home or self-care (01) ==
PROVIDERS: Emergency Provider Emergency Medicine; PCP Family Medicine; Visit Provider Emergency Medicine
DX: S01.81XA Laceration without foreign body of other part of head, initial encounter (principal); Y93.64 Activity, baseball
CPT/HCPCS: 12013; 99283; A4216